=== PATIENT | female | born 1985 | race Caucasian/White ===

== ENCOUNTER → 2016-10-14 | Outpatient (CLI) | payer MEDICAID ==
--- NOTE | 2016-10-15 09:53 | CR ---
EXAM DATE: 10/14/16 PATIENT'S AGE: 31 Patient: KEY CASTLE Facility: [place], [place] Site Site : 1985 Study: XRay Abdomen [id number]/24/2017 11:24:22 AM Ordering Physician: NIRAV FRAGOSO DO Final Report: HISTORY: Kidney stones. Findings: A single supine radiograph of the abdomen is compared with 01 May 2016. There no calcific density seen overlying the renal shadows. There are clips seen along both sides of the pelvis. Stable bilateral pelvic phleboliths are present. There is some small by gas seen in the left mid abdomen in nondilated loops with stool throughout the colon. Bony structures are normal for age. Impression: No calcified urolithiasis identified. Dictated by Mary Grace Velasco MD @ Oct 14 2016 11:51PM (Electronic Signature) Report Signed by Proxy and Original Signed Document filed in the Medical Record. DONOVAND
== END ==
LOC: MW.DI 09:37
PROVIDERS: ATTEND Urology
DX: N20.0 Calculus of kidney (principal)
CPT/HCPCS: 74000; 74000-26

== ENCOUNTER → 2016-10-23 | Outpatient (CLI) | payer MEDICAID ==
--- NOTE | 2016-10-25 08:44 | NM ---
EXAMINATION: DTPA renogram HISTORY: Calculus of the kidney COMPARISON: Ultrasound dated 12/05/2015 TECHNIQUE: Flow and dynamic images obtained of the urinary system following the administration of 20 .4 mCi of technetium 99m labeled DTPA. The clearance was normal and Lasix was not used. FINDINGS: There is adequate and symmetric flow to the kidneys bilaterally. The T1 half of the right kidney is 22 minutes and the T1 half of the left kidney is 18 minutes. Both kidneys demonstrate a nonobstructive clearance curve. Both ureters are noted in nondilated on the d ynamic images. The split function is 51.6% on the right and 48.4% on the left. IMPRESSION: 1. Grossly unremarkable DTPA renogram.
== END ==
LOC: MW.NM 09:55
PROVIDERS: ATTEND Urology
DX: N20.0 Calculus of kidney (principal)
CPT/HCPCS: 78707; A9567

== ENCOUNTER 2016-12-06 18:30 | Emergency (ER) | payer MEDICAID ==
--- NOTE | 2016-12-06 18:47 | EDM.PDOC ---
ED HPI GENERAL MEDICAL PROBLEM - General Chief Complaint: Bite:Animal, Insect Stated Complaint: CAT BITE RT HAND Time Seen by Provider: 12/06/16 18:46 Source of Information: Reports: Patient History Limitations: Reports: No Limitations - History of Present Illness INITIAL COMMENTS - FREE TEXT/NARRATIVE: History of present illness: [31-year-old female presenting with complaints of pain in the right wrist area status post cat bite. The incident occurred last night by a cat given to her by her neighbor. She is indicating the cat is current on all immunizations including its rabies.] Review of systems: As per history of present illness and below otherwise all systems reviewed and negative. Past medical history: As per history of present illness and as reviewed below otherwise noncontributory. Surgical history: As per history of present illness and as reviewed below otherwise noncontributory. Social history: No reported history of drug or alcohol abuse. Family history: As per history of present illness and as reviewed below otherwise noncontributory. Physical exam: HEENT: Atraumatic, normocephalic, pupils reactive, negative for conjunctival pallor or scleral icterus, mucous membranes moist, throat clear, neck supple, nontender, trachea midline. Lungs: Clear to auscultation, breath sounds equal bilaterally, chest nontender. Heart: S1S2, regular, negative for clicks, rubs, or JVD. Abdomen: Soft, nondistended, nontender. Negative for masses or hepatosplenomegaly. Negative for costovertebral tenderness. Pelvis: Stable nontender. Genitourinary: Deferred. Rectal: Deferred. Extremities: Right hand with a puncture wound at the wrist with some erythema surrounding it going into the dorsal aspect of the hand. negative for cords or calf pain. Neurovascular unremarkable. Neuro: Awake, alert, oriented. Cranial nerves II through XII unremarkable. Cerebellum unremarkable. Motor and sensory unremarkable throughout. Exam nonfocal. Vision has diffuse swelling at the site of the puncture wound and has some stiffness and pain with passive range of motion as well as active range of motion. Diagnostics: [X-ray right wrist] Therapeutics: [Tpradol 60 mg IM] Impression: [Cat Bite] Plan: [Augmentin] Definitive disposition and diagnosis as appropriate pending reevaluation and review of above. 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: Neurological History: Reports: Other (See Below) Other Neuro History: epilepsy Endocrine/Metabolic History: Reports: Diabetes, Gestational - Past Surgical History Musculoskeletal Surgical History: Reports: Other (See Below) Social & Family History - Family History Endocrine/Metabolic: Reports: Diabetes, type II Oncologic: Reports: Prostate - Tobacco Use Smoking Status *Q: Never Smoker Years of Tobacco use: 15 Used Tobacco, but Quit: No Second Hand Smoke Exposure: No - Alcohol Use Days Per Week of Alcohol Use: 0 Number of Drinks Per Day: 1 Total Drinks Per Week: 0 - Recreational Drug Use Recreational Drug Use: No ED ROS GENERAL - Review of Systems Review Of Systems: See Below (See history of present illness) ED EXAM, ANIMAL BITE - Physical Exam Exam: See Below (See history of present illness) Course - Vital Signs Last Recorded V/S: Last Vital Signs Temp 36.7 C 12/06/16 18:43 Pulse 90 12/06/16 18:43 Resp 18 12/06/16 18:43 BP 154/90 H 12/06/16 18:43 Pulse Ox 96 12/06/16 18:43 - Orders/Labs/Meds Orders: Active Orders 24 hr Category Date Time Status Wrist 2V Rt [CR] Stat Exams 12/06/16 18:48 Taken Meds: Medications Discontinued Medications Generic Name Dose Route Start Last Admin Trade Name Freq PRN Reason Stop Dose Admin Ampicillin Sodium/Sulbactam 100 mls @ 200 mls/hr 12/06/16 18:51 12/06/16 20: 00 Sodium 3 gm/ Sodium Chloride IV 12/06/16 19:20 200 mls/hr ONETIME ONE Administration Sodium Chloride 1,000 mls @ 999 mls/hr 12/06/16 18:51 12/06/16 19:18 Normal Saline IV 12/06/16 19:51 999 mls/hr STAT ONE Administration Departure - Departure Time of Disposition: 20:14 Disposition: Home, Self-Care 01 Condition: Good Clinical Impression: Cellulitis - Discharge Information Prescriptions: Amoxicillin/Potassium Clav [Augmentin 875-125 Tablet] 1 each PO BID #20 tablet Instructions: Animal Bite, [id number] Forms: ED Department Discharge Additional Instructions: The following information is given to patients seen in the emergency department who are being discharged to home. This information is to outline your options for follow-up care. We provide all patients seen in our emergency department with a follow-up referral. The need for follow-up, as well as the timing and circumstances, are variable depending upon the specifics of your emergency department visit. If you don't have a primary care physician on staff, we will provide you with a referral. We always advise you to contact your personal physician following an emergency department visit to inform them of the circumstance of the visit and for follow-up with them and/or the need for any referrals to a consulting specialist. The emergency department will also refer you to a specialist when appropriate. This referral assures that you have the opportunity for follow-up care with a specialist. All of these measure are taken in an effort to provide you with optimal care, which includes your follow-up. Under all circumstances we always encourage you to contact your private physician who remains a resource for coordinating your care. When calling for follow-up care, please make the office aware that this follow-up is from your recent emergency room visit. If for any reason you are refused follow-up, please contact the [facility] Emergency Department at and asked to speak to the emergency department charge nurse. Take medication as directed Follow-up with PCP in 1-2 days Return to ED as needed as discussed - My Orders Last 24 Hours: My Active Orders 12/06/16 18:48 Wrist 2V Rt [CR] Stat - Assessment/Plan Last 24 Hours: My Active Orders 12/06/16 18:48 Wrist 2V Rt [CR] Stat
[2016-12-06] MEDS ORDERED: Ampicillin/Sulbactam Na 3 GM in Sodium Chloride 0.9% 100 ML IV ONE (18:51)
[2016-12-06] MEDS ORDERED: Sodium Chloride 0.9% 1,000 ML IV ONE (18:51)
[2016-12-06 21:44] VITALS: BP 148/80
--- NOTE | 2016-12-09 11:07 | CR ---
EXAM DATE: 12/06/16 PATIENT'S AGE: 31 Patient: KEY CASTLE Facility: [place], [place] Site . Site : 1985 Study: XRay Extremity wrist [id number]/16/2017 7:14:16 PM Ordering Physician: Doctor Jesus Final Report: INDICATION: cat bite INDICATION: Right wrist pain and injury with cat bite. Technique: Two-view. FINDINGS: No fracture is seen of the right wrist. No gas within the soft tissues is identified. IMPRESSION: No fracture is seen of the right wrist. No gas within the soft tissues is identified. Dictated by Neri Schwartz MD @ 12/06/2016 7:39:54 PM Dictated by: Neri Schwartz MD @ 12/06/2016 19:40:11 (Electronic Signature) Report Signed by Proxy. MTDAlaina
== END 2016-12-06 20:36 | disposition home or self-care (01) ==
LOC: MW.ED 18:30
DX: S61.531A Puncture wound without foreign body of right wrist, initial encounter (principal); L03.113 Cellulitis of right upper limb; G40.909 Epilepsy, unspecified, not intractable, without status epilepticus; W55.01XA Bitten by cat, initial encounter
CPT/HCPCS: 73100; 96361; 96365; 99283; J0295; J7030; J7040

== ENCOUNTER 2018-03-03 11:28 | Emergency (ER) | payer MEDICAID ==
--- NOTE | 2018-03-03 12:29 | EDM.PDOC ---
ED HPI GENERAL MEDICAL PROBLEM - General Chief Complaint: Genitourinary Problem Stated Complaint: BURNING AND ITCHING VAGINA Time Seen by Provider: 03/03/18 11:46 Source of Information: Reports: Patient History Limitations: Reports: No Limitations - History of Present Illness INITIAL COMMENTS - FREE TEXT/NARRATIVE: History of present illness: []Patient complains of vaginal burning and itching feeling that feels like sandpaper. Patient has had this before and was treated with Monistat topically with good results. She tried using Monistat again but did not work. She is not diabetic she does state she used douche recently. Patient had diabetes during her second and has a family history of diabetes. Review of systems: As per history of present illness and below otherwise all systems reviewed and negative. Past medical history: As per history of present illness and as reviewed below otherwise noncontributory. Surgical history: As per history of present illness and as reviewed below otherwise noncontributory. Social history: No reported history of drug or alcohol abuse. Family history: As per history of present illness and as reviewed below otherwise noncontributory. Physical exam: General: Well developed, well nourished in NAD HEENT: Atraumatic, normocephalic, pupils reactive, negative for conjunctival pallor or scleral icterus, mucous membranes moist, throat clear, neck supple, nontender, trachea midline. Lungs: Clear to auscultation, breath sounds equal bilaterally, chest nontender. Heart: S1S2, regular, negative for clicks, rubs, or JVD. Abdomen: Soft, nondistended, nontender. Negative for masses or hepatosplenomegaly. Negative for costovertebral tenderness. Pelvis: Stable nontender. Genitourinary: Deferred. Rectal: Deferred. Extremities: Atraumatic, negative for cords or calf pain. Neurovascular unremarkable. Neuro: Awake, alert, oriented. Cranial nerves II through XII unremarkable. Cerebellum unremarkable. Motor and sensory unremarkable throughout. Exam nonfocal. Skin:warm and dry Diagnostics: UA shows glucose over thousand, hCG negative, [id number] bedside glucose shows a glucose of 337 Therapeutics: Regular insulin 10 units given subcutaneous ED Course: Unremarkable Impression: Yeast infection, new onset diabetes Prescriptions: Diflucan Plan: Patient will be going to diabetic teaching after she leaves here. So has an appointment with Dr. Chandra tomorrow in the clinic. During her on metformin twice a day. Use Diflucan as directed follow-up with [facility]. Definitive disposition and diagnosis as appropriate pending reevaluation and review of above. Vaginal Pain Score (Numeric/FACES): 3 - Related Data Allergies Allergy/AdvReac Type Severity Reaction Status Date / Time No Known Allergies Allergy Verified 12/06/16 18:45 Home Meds: Home Meds Topiramate [Topamax] 200 mg PO BID 08/11/14 [History] Amoxicillin/Potassium Clav [Augmentin 875-125 Tablet] 1 each PO BID #20 tablet 12/06/16 [Rx] Fluconazole [Diflucan] 150 mg PO ASDIRECTED #2 tablet 03/03/18 [Rx] metFORMIN [Glucophage XR] 500 mg PO BIDMEALS #16 tab.er 03/03/18 [Rx] Past Medical History - Past Health History Medical/Surgical History: Denies Medical/Surgical History Genitourinary History: Reports: Pyelonephritis 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 ED EXAM, RENAL/ - Physical Exam Exam: See Below (See history of present illness) Course - Vital Signs Last Recorded V/S: Last Vital Signs Temp 97.2 F 03/03/18 12:59 Pulse 95 03/03/18 12:59 Resp 20 03/03/18 12:59 BP 127/97 H 03/03/18 12:59 Pulse Ox 95 03/03/18 12:59 - Orders/Labs/Meds Orders: Active Orders 24 hr Category Date Time Status POC Glucose [Blood Glucose Check, Bedside] [RC] ONETIME Care 03/03/18 12:49 Active Labs: Laboratory Tests 03/03/18 03/03/18 03/03/18 Range/Units 12:30 12:30 12:51 POC Glucose 339 H (60-110) mg/dL Urine Color YELLOW Urine Appearance CLEAR Urine pH 6.0 (5.0-8.0) Ur Specific Taylor 1.015 (1.001-1.035) Urine Protein NEGATIVE (NEGATIVE) mg/dL Urine Glucose (UA) >=1000 (NEGATIVE) mg/dL Urine Ketones TRACE H (NEGATIVE) mg/dL Urine Occult Blood TRACE-LYSED (NEGATIVE) Urine Nitrite NEGATIVE (NEGATIVE) Urine Bilirubin NEGATIVE (NEGATIVE) Urine Urobilinogen 0.2 (<2.0) EU/dL Ur Leukocyte Esterase NEGATIVE (NEGATIVE) Urine RBC 2-4 (0-2/HPF) Urine WBC 0-3 (0-5/HPF) Ur Epithelial Cells FEW (NONE-FEW) Urine Bacteria FEW (NEGATIVE) Urine HCG, Qual NEGATIVE (NEGATIVE) 03/03/18 Range/Units 13:28 POC Glucose 352 H (60-110) mg/dL Urine Color Urine Appearance Urine pH (5.0-8.0) Ur Specific Taylor (1.001-1.035) Urine Protein (NEGATIVE) mg/dL Urine Glucose (UA) (NEGATIVE) mg/dL Urine Ketones (NEGATIVE) mg/dL Urine Occult Blood (NEGATIVE) Urine Nitrite (NEGATIVE) Urine Bilirubin (NEGATIVE) Urine Urobilinogen (<2.0) EU/dL Ur Leukocyte Esterase (NEGATIVE) Urine RBC (0-2/HPF) Urine WBC (0-5/HPF) Ur Epithelial Cells (NONE-FEW) Urine Bacteria (NEGATIVE) Urine HCG, Qual (NEGATIVE) Meds: Medications Discontinued Medications Generic Name Dose Route Start Last Admin Trade Name Freq PRN Reason Stop Dose Admin Insulin Human Regular 10 unit 03/03/18 12:52 03/03/18 13:03 Novolin R SUBCUT 03/03/18 12:53 10 units ONETIME ONE Administration Protocol Insulin Human Regular Confirm 03/03/18 13:01 03/03/18 13:05 Novolin R Administered 03/03/18 13:02 Not Given Dose 1,000 unit .ROUTE .STK-MED ONE Insulin Human Regular 10 unit 03/03/18 13:30 03/03/18 13:32 Novolin R SUBCUT 03/03/18 13:31 10 units ONETIME ONE Administration Protocol Departure - Departure Time of Disposition: 13:34 Disposition: Home, Self-Care 01 Condition: Good Clinical Impression: Vaginal yeast infection, Diabetes mellitus, new onset - Discharge Information *PRESCRIPTION DRUG MONITORING PROGRAM REVIEWED*: No *COPY OF PRESCRIPTION DRUG MONITORING REPORT IN PATIENT ALEXANDR: No Prescriptions: Fluconazole [Diflucan] 150 mg PO ASDIRECTED #2 tablet metFORMIN [Glucophage XR] 500 mg PO BIDMEALS #16 tab.er Instructions: Type 2 Diabetes Mellitus, Diagnosis, Adult, Vaginal Yeast Infection, Adult Referrals: Kartik Stallworth MD [Primary Care Provider] - Forms: ED Department Discharge Additional Instructions: The following information is given to patients seen in the emergency department who are being discharged to home. This information is to outline your options for follow-up care. We provide all patients seen in our emergency department with a follow-up referral. The need for follow-up, as well as the timing and circumstances, are variable depending upon the specifics of your emergency department visit. If you don't have a primary care physician on staff, we will provide you with a referral. We always advise you to contact your personal physician following an emergency department visit to inform them of the circumstance of the visit and for follow-up with them and/or the need for any referrals to a consulting specialist. The emergency department will also refer you to a specialist when appropriate. This referral assures that you have the opportunity for follow-up care with a specialist. All of these measure are taken in an effort to provide you with optimal care, which includes your follow-up. Under all circumstances we always encourage you to contact your private physician who remains a resource for coordinating your care. When calling for follow-up care, please make the office aware that this follow-up is from your recent emergency room visit. If for any reason you are refused follow-up, please contact the [facility] Emergency Department at and asked to speak to the emergency department charge nurse. Use medications as directed. Please keep follow up appointment with [facility] Stitcher at 2pm today and with Dr. Chandra tomorrow at 0930am. [facility] [address] [place] [id number] - My Orders Last 24 Hours: My Active Orders 03/03/18 12:49 POC Glucose [Blood Glucose Check, Bedside] [RC] ONETIME - Assessment/Plan Last 24 Hours: My Active Orders 03/03/18 12:49 POC Glucose [Blood Glucose Check, Bedside] [RC] ONETIME
[2018-03-03] MEDS ORDERED: Insulin Regular, Human 100 Units/ML 10 ML Vial SUBCUT ONE ×2 (12:52→13:30)
[2018-03-03] MEDS ORDERED: Insulin Regular, Human 100 Units/ML 10 ML Vial ONE (13:01)
[2018-03-03 14:13] VITALS: BP 160/101
== END 2018-03-03 13:34 | disposition home or self-care (01) ==
LOC: MW.ED 11:28
DX: B37.3 Candidiasis of vulva and vagina (principal); E11.9 Type 2 diabetes mellitus without complications; Z79.899 Other long term (current) drug therapy
CPT/HCPCS: 81001; 81025; 82962; 99283; J1815-GY

== ENCOUNTER 2018-08-11 10:48 | Emergency (ER) | payer SELFPAY ==
[2018-08-11] MEDS ORDERED: Sodium Chloride 0.9% 1,000 ML IV ONE (10:52)
[2018-08-11] MEDS ORDERED: Sodium Chloride 0.9% 2.5 ML Syringe FLUSH PRN (10:52)
[2018-08-11] MEDS ORDERED: Sodium Chloride 0.9% 10 ML Syringe FLUSH PRN (10:52)
--- NOTE | 2018-08-11 10:56 | EDM.PDOC ---
ED HPI GENERAL MEDICAL PROBLEM - General Chief Complaint: Neurological Problem Stated Complaint: SEIZURES Time Seen by Provider: 08/11/18 10:50 - History of Present Illness INITIAL COMMENTS - FREE TEXT/NARRATIVE: HISTORY AND PHYSICAL: History of present illness: Patient is a 32-year-old white female history diabetes and seizure disorder who presents status post CVA last approximately 1 minute with postictal. There is no associated trauma patient states she has been compliant with her medications on arrival here is awake alert oriented with a nonfocal exam blood sugar sugar was reportedly 456 in the field patient states she's not particularly compulsive regarding management of her diabetes. Review of systems: As per history of present illness and below otherwise all systems reviewed and negative. Past medical history: As per history of present illness and as reviewed below otherwise noncontributory. Surgical history: As per history of present illness and as reviewed below otherwise noncontributory. Social history: No reported history of drug or alcohol abuse. Family history: As per history of present illness and as reviewed below otherwise noncontributory. Physical exam: HEENT: Atraumatic, normocephalic, pupils reactive, negative for conjunctival pallor or scleral icterus, mucous membranes moist, throat clear, neck supple, nontender, trachea midline. Lungs: Clear to auscultation, breath sounds equal bilaterally, chest nontender. Heart: S1S2, regular, negative for clicks, rubs, or JVD. Abdomen: Soft, nondistended, nontender. Negative for masses or hepatosplenomegaly. Negative for costovertebral tenderness. Pelvis: Stable nontender. Genitourinary: Deferred. Rectal: Deferred. Extremities: Atraumatic, negative for cords or calf pain. Neurovascular unremarkable. Neuro: Awake, alert, oriented. Cranial nerves II through XII unremarkable. Cerebellum unremarkable. Motor and sensory unremarkable throughout. Exam nonfocal. Diagnostics: CBC CMP ABG UA hCG prolactin level chest x-ray Therapeutics: Saline 1 L bolus Impression: #1 seizure with known seizure disorder #2 diabetes #3 medical noncompliance Definitive disposition and diagnosis as appropriate pending reevaluation and review of above. - Related Data Allergies Allergy/AdvReac Type Severity Reaction Status Date / Time No Known Allergies Allergy Verified 08/11/18 10:54 Home Meds: Home Meds Topiramate [Topamax] 200 mg PO BID 08/11/14 [History] Amoxicillin/Potassium Clav [Augmentin 875-125 Tablet] 1 each PO BID #20 tablet 12/06/16 [Rx] Fluconazole [Diflucan] 150 mg PO ASDIRECTED #2 tablet 03/03/18 [Rx] metFORMIN [Glucophage XR] 500 mg PO BIDMEALS #16 tab.er 03/03/18 [Rx] Past Medical History - Past Health History Medical/Surgical History: Denies Medical/Surgical History HEENT History: Reports: None Genitourinary History: Reports: Pyelonephritis 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: Neurological History: Reports: Other (See Below) Other Neuro History: epilepsy Endocrine/Metabolic History: Reports: Diabetes, Gestational - Infectious Disease History Infectious Disease History: Reports: Chicken Pox - Past Surgical History Musculoskeletal Surgical History: Reports: Other (See Below) Social & Family History - Family History Family Medical History: Noncontributory Cardiac: Reports: Other (See Below) Other Cardiac Family History: heart disease, does not know specifics Neurological: Reports: Other (See Below) Other Neurological Family History: epilepsy Endocrine/Metabolic: Reports: Diabetes, type II Oncologic: Reports: Prostate - Caffeine Use Caffeine Use: Reports: Soda ED ROS GENERAL - Review of Systems Review Of Systems: ROS reveals no pertinent complaints other than HPI. ED EXAM, GENERAL - Physical Exam Exam: See Below (See dictation) Course - Vital Signs Text/Narrative:: Patient has had an unremarkable emergency department course I discuss with her her poorly managed diabetes and her current lab work I discussed with her admission for observation and further treatment as needed patient declined she states she feels better and is eager for discharge she will follow-up with her primary medical doctor. Last Recorded V/S: Last Vital Signs Temp 36.8 C 08/11/18 10:50 Pulse 111 H 08/11/18 11:18 Resp 16 08/11/18 11:18 BP 130/93 H 08/11/18 11:18 Pulse Ox 97 08/11/18 11:18 - Orders/Labs/Meds Orders: Active Orders 24 hr Category Date Time Status Cardiac Monitoring [RC] . DIRECTED Care 08/11/18 10:51 Active EKG Documentation Completion [RC] STAT Care 08/11/18 10:51 Active Oxygen Therapy, ED [RC] ASDIRECTED Care 08/11/18 10:51 Active Pulse Oximetry [RC] ASDIRECTED Care 08/11/18 10:51 Active UA RFX ALIYA AND CULT IF INDIC [URIN] Stat Lab 08/11/18 10:53 Ordered Sodium Chloride 0.9% [Saline Flush] Med 08/11/18 10:52 Active 10 ml FLUSH ASDIRECTED PRN Sodium Chloride 0.9% [Saline Flush] Med 08/11/18 10:52 Active 2.5 ml FLUSH ASDIRECTED PRN Saline Lock Insert [OM.PC] Stat Oth 08/11/18 10:51 Ordered Medication Orders Sodium Chloride (Saline Flush) 10 ml FLUSH ASDIRECTED PRN PRN Reason: Keep Vein Open Sodium Chloride (Saline Flush) 2.5 ml FLUSH ASDIRECTED PRN PRN Reason: Keep Vein Open Labs: Laboratory Tests 08/11/18 08/11/18 08/11/18 Range/Units 11:15 11:15 11:15 WBC 4.45 (4.0-11.0) K/uL RBC 4.31 (4.30-5.90) M/uL Hgb 14.2 (12.0-16.0) g/dL Hct 39.7 (36.0-46.0) % MCV 92.1 (80.0-98.0) fL MCH 32.9 H (27.0-32.0) pg MCHC 35.8 (31.0-37.0) g/dL RDW Std Deviation 40.1 (28.0-62.0) fl RDW Coeff of Ifeoma 12 (11.0-15.0) % Plt Count 141 L (150-400) K/uL MPV 10.20 (7.40-12.00) fL Neut % (Auto) 67.5 (48.0-80.0) % Lymph % (Auto) 25.8 (16.0-40.0) % [place] % (Auto) 4.9 (0.0-15.0) % Eos % (Auto) 1.6 (0.0-7.0) % Baso % (Auto) 0.2 (0.0-1.5) % Neut # (Auto) 3.0 (1.4-5.7) K/uL Lymph # (Auto) 1.2 (0.6-2.4) K/uL [place] # (Auto) 0.2 (0.0-0.8) K/uL Eos # (Auto) 0.1 (0.0-0.7) K/uL Baso # (Auto) 0.0 (0.0-0.1) K/uL Nucleated RBC % 0.0 /100WBC Nucleated RBCs # 0 K/uL INR 1.06 ABG pH (7.35-7.45) ABG pCO2 (35-45) mmHG ABG pO2 (75-100) mmHG ABG HCO3 (22-26) mEq/L ABG Total CO2 ABG Base Excess (-2.0-2.0) Sodium 129 L (136-145) mmol/L Potassium 3.7 (3.5-5.1) mmol/L Chloride 93 L (98-107) mmol/L Carbon Dioxide 17.3 L (21.0-32.0) mmol/L BUN 9 (7.0-18.0) mg/dL Creatinine 1.3 H (0.6-1.0) mg/dL Est Cr Clr Drug Dosing 53.52 mL/min Estimated GFR (MDRD) 46.9 ml/min Glucose 469 H (74-106) mg/dL Calcium 8.7 (8.5-10.1) mg/dL Total Bilirubin 0.6 (0.2-1.0) mg/dL AST 412 H (15-37) IU/L ALT 245 H (14-63) IU/L Alkaline Phosphatase 150 H (46-116) U/L Troponin I < 0.050 (0.000-0.056) ng/mL Total Protein 7.8 (6.4-8.2) g/dL Albumin 3.8 (3.4-5.0) g/dL Globulin 4.0 (2.6-4.0) g/dL Albumin/Globulin Ratio 0.9 (0.9-1.6) Prolactin 49.8 ng/mL HCG, Qual (NEG) 08/11/18 08/11/18 Range/Units 11:15 12:25 WBC (4.0-11.0) K/uL RBC (4.30-5.90) M/uL Hgb (12.0-16.0) g/dL Hct (36.0-46.0) % MCV (80.0-98.0) fL MCH (27.0-32.0) pg MCHC (31.0-37.0) g/dL RDW Std Deviation (28.0-62.0) fl RDW Coeff of Ifeoma (11.0-15.0) % Plt Count (150-400) K/uL MPV (7.40-12.00) fL Neut % (Auto) (48.0-80.0) % Lymph % (Auto) (16.0-40.0) % [place] % (Auto) (0.0-15.0) % Eos % (Auto) (0.0-7.0) % Baso % (Auto) (0.0-1.5) % Neut # (Auto) (1.4-5.7) K/uL Lymph # (Auto) (0.6-2.4) K/uL [place] # (Auto) (0.0-0.8) K/uL Eos # (Auto) (0.0-0.7) K/uL Baso # (Auto) (0.0-0.1) K/uL Nucleated RBC % /100WBC Nucleated RBCs # K/uL INR ABG pH 7.407 (7.35-7.45) ABG pCO2 34 L (35-45) mmHG ABG pO2 88 (75-100) mmHG ABG HCO3 21 L (22-26) mEq/L ABG Total CO2 19.0 ABG Base Excess -2.7 L (-2.0-2.0) Sodium (136-145) mmol/L Potassium (3.5-5.1) mmol/L Chloride (98-107) mmol/L Carbon Dioxide (21.0-32.0) mmol/L BUN (7.0-18.0) mg/dL Creatinine (0.6-1.0) mg/dL Est Cr Clr Drug Dosing mL/min Estimated GFR (MDRD) ml/min Glucose (74-106) mg/dL Calcium (8.5-10.1) mg/dL Total Bilirubin (0.2-1.0) mg/dL AST (15-37) IU/L ALT (14-63) IU/L Alkaline Phosphatase (46-116) U/L Troponin I (0.000-0.056) ng/mL Total Protein (6.4-8.2) g/dL Albumin (3.4-5.0) g/dL Globulin (2.6-4.0) g/dL Albumin/Globulin Ratio (0.9-1.6) Prolactin ng/mL HCG, Qual NEGATIVE (NEG) Meds: Medications Generic Name Dose Route Start Last Admin Trade Name Freq PRN Reason Stop Dose Admin Sodium Chloride 10 ml 08/11/18 10:52 Saline Flush FLUSH ASDIRECTED PRN Keep Vein Open Sodium Chloride 2.5 ml 08/11/18 10:52 Saline Flush FLUSH ASDIRECTED PRN Keep Vein Open Discontinued Medications Generic Name Dose Route Start Last Admin Trade Name Freq PRN Reason Stop Dose Admin Sodium Chloride 1,000 mls @ 999 mls/hr 08/11/18 10:52 08/11/18 11:16 Normal Saline IV 08/11/18 11:52 999 mls/hr STAT ONE Administration Departure - Departure Time of Disposition: 12:48 Disposition: Home, Self-Care 01 Condition: Good Clinical Impression: Seizure disorder, Diabetes, Medical non-compliance - Discharge Information Referrals: PCP,Unknown [Primary Care Provider] - Forms: ED Department Discharge Additional Instructions: The following information is given to patients seen in the emergency department who are being discharged to home. This information is to outline your options for follow-up care. We provide all patients seen in our emergency department with a follow-up referral. The need for follow-up, as well as the timing and circumstances, are variable depending upon the specifics of your emergency department visit. If you don't have a primary care physician on staff, we will provide you with a referral. We always advise you to contact your personal physician following an emergency department visit to inform them of the circumstance of the visit and for follow-up with them and/or the need for any referrals to a consulting specialist. The emergency department will also refer you to a specialist when appropriate. This referral assures that you have the opportunity for followup care with a specialist. All of these measure are taken in an effort to provide you with optimal care, which includes your followup. Under all circumstances we always encourage you to contact your private physician who remains a resource for coordinating your care. When calling for followup care, please make the office aware that this follow-up is from your recent emergency room visit. If for any reason you are refused follow-up, please contact the [facility] emergency department at and asked to speak to the emergency department charge nurse. Follow-up primary medical doctor CIRILO as discussed monitor blood sugar closely diet as discussed medications as directed and return as needed as discussed - My Orders Last 24 Hours: My Active Orders 08/11/18 10:51 Cardiac Monitoring [RC] . DIRECTED EKG Documentation Completion [RC] STAT Oxygen Therapy, ED [RC] ASDIRECTED Pulse Oximetry [RC] ASDIRECTED Saline Lock Insert [OM.PC] Stat 08/11/18 10:52 Sodium Chloride 0.9% [Saline Flush] 10 ml FLUSH ASDIRECTED PRN Sodium Chloride 0.9% [Saline Flush] 2.5 ml FLUSH ASDIRECTED PRN 08/11/18 10:53 UA RFX ALIYA AND CULT IF INDIC [URIN] Stat - Assessment/Plan Last 24 Hours: My Active Orders 08/11/18 10:51 Cardiac Monitoring [RC] . DIRECTED EKG Documentation Completion [RC] STAT Oxygen Therapy, ED [RC] ASDIRECTED Pulse Oximetry [RC] ASDIRECTED Saline Lock Insert [OM.PC] Stat 08/11/18 10:52 Sodium Chloride 0.9% [Saline Flush] 10 ml FLUSH ASDIRECTED PRN Sodium Chloride 0.9% [Saline Flush] 2.5 ml FLUSH ASDIRECTED PRN 08/11/18 10:53 UA RFX ALIYA AND CULT IF INDIC [URIN] Stat
--- NOTE | 2018-08-11 11:40 | CR ---
EXAMINATION: Portable chest radiograph. HISTORY: Shortness of breath. FINDINGS: The trachea is midline. The cardiomediastinal silhouette is within normal limits. No pulmonary infiltrates, effusions or pneumothorax. Osseous structures appear unremarkable. IMPRESSION: No acute cardiopulmonary process.
[2018-08-11 11:52] LABS: CHLORIDE,CL 93 mmol/L (98-107); SODIUM,NA 129 mmol/L (136-145)
[2018-08-11 13:07] VITALS: BP 111/66
== END 2018-08-11 13:14 | disposition home or self-care (01) ==
LOC: MW.ED 10:48
DX: G40.909 Epilepsy, unspecified, not intractable, without status epilepticus (principal); E11.9 Type 2 diabetes mellitus without complications; Z91.19 Patient's noncompliance with other medical treatment and regimen
CPT/HCPCS: 36415; 36600; 71045; 80053; 82803; 84146; 84484; 84703; 85025; 85610; 93005; 96360; 99285; J7040; 99284

== ENCOUNTER 2020-10-30 07:06 | Emergency (ER) | payer MEDICAID ==
--- NOTE | 2020-10-30 07:23 | EDM.PDOC ---
ED HPI GENERAL MEDICAL PROBLEM - General Chief Complaint: Neuro Symptoms/Deficits Stated Complaint: fall Time Seen by Provider: 10/30/20 07:10 Source of Information: Reports: Patient History Limitations: Reports: No Limitations - History of Present Illness INITIAL COMMENTS - FREE TEXT/NARRATIVE: Patient is a 35-year-old female who presents today for a syncope versus seizure. Patient states that she was at work setting up and the next thing she remembers she was on the ground waking up. Staff state the patient passed out. Patient was confused when EMS got there did not know where she was or what happened. Patient arrived patient was ANO x2 knew her name where she was at and president but did not know the year. Patient only complains of some pain to the back of her head denies any neck pain or neurologic complaints. Patient does mention has history of seizures not sure medication she takes. Patient denies any fever chills nausea vomiting or other complaints. Head Pain Score (Numeric/FACES): 4 - Related Data Allergies Allergy/AdvReac Type Severity Reaction Status Date / Time No Known Allergies Allergy Verified 08/11/18 10:54 Home Meds: Home Meds Topiramate [Topamax] 200 mg PO BID 08/11/14 [History] Amoxicillin/Potassium Clav [Augmentin 875-125 Tablet] 1 each PO BID #20 tablet 12/06/16 [Rx] Fluconazole [Diflucan] 150 mg PO ASDIRECTED #2 tablet 03/03/18 [Rx] metFORMIN [Glucophage XR] 500 mg PO BIDMEALS #16 tab.er 03/03/18 [Rx] Past Medical History - Past Health History Medical/Surgical History: Denies Medical/Surgical History HEENT History: Reports: None Genitourinary History: Reports: Pyelonephritis 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: Neurological History: Reports: Other (See Below) Other Neuro History: epilepsy Endocrine/Metabolic History: Reports: Diabetes, Gestational - Infectious Disease History Infectious Disease History: Reports: Chicken Pox - Past Surgical History Musculoskeletal Surgical History: Reports: Other (See Below) Social & Family History - Family History Family Medical History: No Pertinent Family History Cardiac: Reports: Other (See Below) Other Cardiac Family History: heart disease, does not know specifics Neurological: Reports: Other (See Below) Other Neurological Family History: epilepsy Endocrine/Metabolic: Reports: Diabetes, type II Oncologic: Reports: Prostate - Caffeine Use Caffeine Use: Reports: Soda ED ROS GENERAL - Review of Systems Review Of Systems: See Below Constitutional: Reports: No Symptoms HEENT: Reports: No Symptoms Respiratory: Reports: No Symptoms Cardiovascular: Reports: No Symptoms Endocrine: Reports: No Symptoms GI/Abdominal: Reports: No Symptoms : Reports: No Symptoms Musculoskeletal: Reports: No Symptoms Skin: Reports: No Symptoms Neurological: Reports: Syncope Psychiatric: Reports: No Symptoms Hematologic/Lymphatic: Reports: No Symptoms Immunologic: Reports: No Symptoms - Physical Exam Exam: See Below Exam Limited By: No Limitations General Appearance: Alert, WD/WN, No Apparent Distress Eye Exam: Bilateral Eye: EOMI, PERRL Head Exam: Atraumatic, Normocephalic Neck: Normal Inspection, Supple, Non-Tender Respiratory/Chest: No Respiratory Distress, Lungs Clear, Normal Breath Sounds Cardiovascular: Normal Peripheral Pulses, Regular Rate, Rhythm GI/Abdominal: Normal Bowel Sounds, Soft, Non-Tender Neuro Exam (Abbreviated): Alert, Oriented, CN II-XII Intact, Normal Cognition, Normal Gait #1 Interpretation EKG Date: 10/30/20 Time: 07:09 Rhythm: Other (sinus tach) Rate (Beats/Min): 111 ST-T: Normal Course - Vital Signs Last Recorded V/S: Last Vital Signs Temp 98.6 F 10/30/20 07:14 Pulse 87 10/30/20 08:57 Resp 16 10/30/20 08:57 BP 127/87 10/30/20 08:57 Pulse Ox 99 10/30/20 08:57 - Orders/Labs/Meds Orders: Active Orders 24 hr Category Date Time Status DRUG SCREEN, URINE [URCHEM] Stat Lab 10/30/20 07:18 Ordered Labs: Laboratory Tests 10/30/20 10/30/20 10/30/20 Range/Units 07:08 07:08 07:08 WBC 4.30 (4.0-11.0) K/uL RBC 4.25 L (4.30-5.90) M/uL Hgb 13.7 (12.0-16.0) g/dL Hct 41.2 (36.0-46.0) % MCV 96.9 (80.0-98.0) fL MCH 32.2 H (27.0-32.0) pg MCHC 33.3 (31.0-37.0) g/dL RDW Std Deviation 43.6 (28.0-62.0) fl RDW Coeff of Ifeoma 12 (11.0-15.0) % Plt Count 157 (150-400) K/uL MPV 10.10 (7.40-12.00) fL Neut % (Auto) 54.5 (48.0-80.0) % Lymph % (Auto) 37.4 (16.0-40.0) % [place] % (Auto) 5.8 (0.0-15.0) % Eos % (Auto) 2.3 (0.0-7.0) % Baso % (Auto) 0.0 (0.0-1.5) % Neut # (Auto) 2.3 (1.4-5.7) K/uL Lymph # (Auto) 1.6 (0.6-2.4) K/uL [place] # (Auto) 0.3 (0.0-0.8) K/uL Eos # (Auto) 0.1 (0.0-0.7) K/uL Baso # (Auto) 0.0 (0.0-0.1) K/uL Nucleated RBC % 0.0 /100WBC Nucleated RBCs # 0 K/uL Sodium 139 (136-145) mmol/L Potassium 4.0 (3.5-5.1) mmol/L Chloride 99 (98-107) mmol/L Carbon Dioxide 24.5 (21.0-32.0) mmol/L BUN 13 (7.0-18.0) mg/dL Creatinine 1.1 H (0.6-1.0) mg/dL Est Cr Clr Drug Dosing 50.30 mL/min Estimated GFR (MDRD) 55.9 ml/min Glucose 272 H (74-106) mg/dL Calcium 9.1 (8.5-10.1) mg/dL Total Bilirubin 0.2 (0.2-1.0) mg/dL AST 79 H (15-37) IU/L ALT 86 H (14-63) IU/L Alkaline Phosphatase 138 H (46-116) U/L Creatine Kinase 91 (26-308) U/L Troponin I < 0.050 (0.000-0.056) ng/mL Total Protein 7.9 (6.4-8.2) g/dL Albumin 3.7 (3.4-5.0) g/dL Globulin 4.2 H (2.6-4.0) g/dL Albumin/Globulin Ratio 0.9 (0.9-1.6) HCG, Qual NEGATIVE (NEG) Ethyl Alcohol 3 mg/dL Meds: Medications Discontinued Medications Generic Name Dose Route Start Last Admin Trade Name Paula PRN Reason Stop Dose Admin Acetaminophen 650 mg 10/30/20 08:21 10/30/20 08:30 Acetaminophen 325 Mg Tab PO 10/30/20 08:22 650 mg NOW ONE Administration - Re-Assessments/Exams Free Text/Narrative Re-Assessment/Exam: 10/30/20 09:28 Patient presented today for possible seizure. Patient seems to be back at baseline CT head showed a soft tissue hematoma. Patient will be discharged when she can follow-up with her neurologist outpatient. Departure - Departure Time of Disposition: 09:33 Disposition: Home, Self-Care 01 Condition: Good Clinical Impression: Seizure - Discharge Information *PRESCRIPTION DRUG MONITORING PROGRAM REVIEWED*: Not Applicable *COPY OF PRESCRIPTION DRUG MONITORING REPORT IN PATIENT ALEXANDR: Not Applicable Instructions: Seizure, Adult Forms: ED Department Discharge Additional Instructions: The following information is given to patients seen in the emergency department who are being discharged to home. This information is to outline your options for follow-up care. We provide all patients seen in our emergency department with a follow-up referral. The need for follow-up, as well as the timing and circumstances, are variable depending upon the specifics of your emergency department visit. If you don't have a primary care physician on staff, we will provide you with a referral. We always advise you to contact your personal physician following an emergency department visit to inform them of the circumstance of the visit and for follow-up with them and/or the need for any referrals to a consulting specialist. The emergency department will also refer you to a specialist when appropriate. This referral assures that you have the opportunity for follow-up care with a specialist. All of these measure are taken in an effort to provide you with optimal care, which includes your follow-up. Under all circumstances we always encourage you to contact your private phys ician who remains a resource for coordinating your care. When calling for follow-up care, please make the office aware that this follow-up is from your recent emergency room visit. If for any reason you are refused follow-up, please contact the [facility] Emergency Department at and asked to speak to the emergency department charge nurse. Please follow up with your primary care physician. If you do not have a primary care physician, see below: [facility] - Neurology Professional [address], [address] [place] [address] You were seen today after a syncopal episode was probably was a seizure. You are back to baseline now and recommend you continue your seizure medication follow-up with your neurologist for further adjustment of his seizure regimen. You have any other concerning signs or symptoms please return to the ED. Sepsis Event Note (ED) - Evaluation Sepsis Screening Result: No Definite Risk - Focused Exam Vital Signs: Vital Signs Temp Pulse Resp BP Pulse Ox 10/30/20 08:57 87 16 127/87 99 10/30/20 07:14 98.6 F 108 H 16 141/82 H 98 - My Orders Last 24 Hours: My Active Orders 10/30/20 07:18 DRUG SCREEN, URINE [URCHEM] Stat - Assessment/Plan Last 24 Hours: My Active Orders 10/30/20 07:18 DRUG SCREEN, URINE [URCHEM] Stat Plan: Patient is a 35-year-old female who presents today for a syncope versus seizure episode. Patient is ANO x2 has some slight confusion. Patient does have a history of seizures in the past. Will obtain labs CT head and reassess.
[2020-10-30 07:42] LABS: BLOOD UREA NITROGEN,BUN 13 mg/dL (7.0-18.0); CARBON DIOXIDE,CO2 24.5 mmol/L (21.0-32.0); CHLORIDE,CL 99 mmol/L (98-107); GLUCOSE RANDOM 272 mg/dL (74-106); SODIUM,NA 139 mmol/L (136-145)
[2020-10-30] MEDS ORDERED: Acetaminophen 325 MG Tab PO ONE (08:21)
--- NOTE | 2020-10-30 08:42 | CR ---
Indication: Seizure Comparison: Single-view chest August 11, 2018 Technique: Single AP view chest Findings : There is mild central bronchial thickening. There is no focal consolidation, effusion, or pneumothorax. The cardiomediastinal silhouette is within normal limits. The bony thorax is grossly intact. Impression: Mild central bronchial thickening without dense consolidation. Dictated by Josh Manzano MD @ 10/30/2020 8:40:[address] Josh Manzano @ Oct 30 2020 8:40AM
--- NOTE | 2020-10-30 09:16 | CT ---
Indication: Seizure versus syncope Technique: Volumetric multidetector CT images of the head were obtained without the administration of low osmolar intravenous contrast. Comparison: CT head December 07, 2015 Findings: There is no intra-axial or extra-axial fluid collection. There is no mass effect or midline shift. The ventricles and sulci are normal in size and position for age. The brain parenchyma is grossly preserved in attenuation and ramsay-white differentiation. The orbits and their contents are grossly within normal limits. There is a small left posterior vertex subgaleal soft tissue hematoma. Otherwise, the underlying bony calvarium is grossly intact. The paranasal sinuses are clear. The mastoid air cells are well aerated. Impression: Left vertex subgaleal soft tissue hematoma, otherwise no acute intracranial abnormality. Please note that all CT scans at this facility use dose modulation, iterative reconstruction, and/or weight-based dosing when appropriate to reduce radiation dose to as low as reasonably achievable. Dictated by Josh Manzano MD @ 10/30/2020 9:14:[address] Josh Manzano @ Oct 30 2020 9:14AM
[2020-10-30 10:36] VITALS: BP 113/78; PULSE 78
== END 2020-10-30 10:37 | disposition home or self-care (01) ==
LOC: MW.ED 07:06
DX: R56.9 Unspecified convulsions (principal)
CPT/HCPCS: 36415; 70450; 71045; 80053; 80305; 80307; 81003; 82550; 84484; 84703; 85025; 93005; 99285; A9270

== ENCOUNTER 2021-02-19 17:46 | Emergency (ER) | payer MEDICAID ==
--- NOTE | 2021-02-19 18:33 | EDM.PDOC ---
ED HPI GENERAL MEDICAL PROBLEM - General Chief Complaint: Neurological Problem Stated Complaint: EMS Time Seen by Provider: 02/19/21 18:14 - History of Present Illness INITIAL COMMENTS - FREE TEXT/NARRATIVE: CHIEF COMPLAINT(S): Weakness HISTORY OF PRESENT ILLNESS: This is a 35-year-old woman with a past medical history of diabetes mellitus who comes to be emergency department via EMS with a chief complaint of weakness. Per EMS: The patient called them because she was feeling weak. On their arrival she was diaphoretic and they checked her glucose which was found to be in the 70s. They provide the patient with 1 D10 drip and her symptoms have improved. Other than that no other medical history. The patient states that she was at work today and she suddenly became diaphoretic and cold. She states that she went home and was feeling weak and did not drink any thing or eat anything and lay down. She states that after the dextrose given in route she feels back to normal just a little bit cold. She denies any fever, chills, chest pain, short of breath, abdominal pain, nausea or vomiting. She denies any excessive use of insulin. She did not give herself any excessive doses. She states that she just did not feel hungry at home. REVIEW OF SYSTEMS: Constitutional: Positive for weakness and diaphoresis denies fever, chills. Eyes: Denies eye pain Ears, Nose, Mouth, & Throat: Denies earache Cardiovascular: Denies chest pain Respiratory: Denies shortness of breath Gastrointestinal: Denies Nausea, vomiting, diarrhea, hematochezia. Genitourinary: Denies hematuria Skin:Denies a rash MSK: Denies joint pain Neurological: Denies blurred vision Psychiatric: Denies depression PAST MEDICAL HISTORY: As per history of present illness and as reviewed below otherwise noncontributory. SURGICAL HISTORY: As per history of present illness and as reviewed below otherwise noncontributory. SOCIAL HISTORY: As per history of present illness and as reviewed below otherwise noncontributory. FAMILY HISTORY: As per history of present illness and as reviewed below otherwise noncontributory. EXAMINATION OF ORGAN SYSTEMS/BODY AREAS: Constitutional: Blood pressure was 127/72, heart rate 55, respiratory rate 18 with an oxygen saturation of 100% on room air. Temperature 35.3 General: Well-appearing woman who is in no acute distress Psychiatric: Appropriate mood and affect. Eyes: No scleral icterus or conjunctival erythema ENMT: Moist mucous membranes. No pharyngeal erythema Cardiovascular: Regular, rate, and rhythm. No gallops, murmurs, or rubs. Bilateral upper extremity pulses symmetric and intact. No peripheral edema. No JVD. Respiratory: Lungs clear to auscultation bilaterally. No wheezes, rales, or rhonchi. Gastrointestinal: Soft, non-tender, non-distended. Normoactive bowel sounds Genitourinary: No suprapubic tenderness Musculoskeletal: Normal range of motion. Skin: No lesions or abrasions. Neurological: Alert, GCS 15 MEDICAL DECISION MAKING AND COURSE IN THE ED WITH INTERPRETATION/REVIEW OF DIAGNOSTIC STUDIES: This is a 35-year-old woman with insulin-dependent diabetes mellitus who comes to the emergency department with acute hypoglycemic episode who has normal vital signs and overall appears well. At this time we did obtain a repeat glucose which was found to be 211. The patient was able to tolerate juice by mouth. At this time I do not believe any further work-up is indicated as the patient's hypoxemia is secondary to decreased p.o. intake. Encouraged her to carry glucose tablets and to return if she has any new or worsening symptoms. She was amenable to discharge at this time and had no further questions. DISPOSITION: The patient was discharged home in stable condition. The patient will follow up with primary physician in 3 to 5 days CONDITION: Fair PROCEDURES: None FINAL IMPRESSION(S)/DIAGNOSES: 1. Acute hypoglycemic episode Jonnie Núñez M.D. - Related Data Allergies Allergy/AdvReac Type Severity Reaction Status Date / Time No Known Allergies Allergy Verified 02/19/21 17:57 Home Meds: Home Meds Empagliflozin [Jardiance] 1 dose PO DAILY 02/19/21 [History] Escitalopram [Lexapro] 1 dose PO DAILY 02/19/21 [History] Exenatide Microspheres [Bydureon] 1 dose PO ASDIRECTED 02/19/21 [History] Insulin Glarg,Human.Rec.Analog [Lantus] 1 dose .ROUTE DAILY 02/19/21 [History] Rosuvastatin [Crestor] 1 dose PO DAILY 02/19/21 [History] levETIRAcetam [Levetiracetam] 1 dose PO DAILY 02/19/21 [History] lisinopriL [Lisinopril] 1 tab PO DAILY 02/19/21 [History] Past Medical History - Past Health History Medical/Surgical History: Denies Medical/Surgical History HEENT History: Reports: None Genitourinary History: Reports: Pyelonephritis [employer] History: Reports: Neurological History: Reports: Seizure, Other (See Below) Other Neuro History: epilepsy Endocrine/Metabolic History: Reports: Diabetes, Gestational - Infectious Disease History Infectious Disease History: Reports: Chicken Pox - Past Surgical History Female Surgical History: Reports: Section, Kidney stone extraction Musculoskeletal Surgical History: Reports: Other (See Below) Other Musculoskeletal Surgeries/Procedures:: ankle surgery Social & Family History - Family History Family Medical History: No Pertinent Family History Cardiac: Reports: Other (See Below) Other Cardiac Family History: heart disease, does not know specifics Neurological: Reports: Other (See Below) Other Neurological Family History: epilepsy Endocrine/Metabolic: Reports: Diabetes, type II Oncologic: Reports: Prostate - Caffeine Use Caffeine Use: Reports: Soda ED ROS GENERAL - Review of Systems Review Of Systems: See Below ED EXAM, GENERAL - Physical Exam Exam: See Below Course - Vital Signs Last Recorded V/S: Last Vital Signs Temp 35.4 C L 02/19/21 18:42 Pulse 60 02/19/21 18:42 Resp 16 02/19/21 18:42 BP 129/74 02/19/21 18:42 Pulse Ox 99 02/19/21 18:42 - Orders/Labs/Meds Labs: Laboratory Tests 02/19/21 Range/Units 18:21 POC Glucose 211 H (70-99) mg/dL Departure - Departure Time of Disposition: 18:32 Disposition: Home, Self-Care 01 Condition: Fair Clinical Impression: Hypoglycemia - Discharge Information *PRESCRIPTION DRUG MONITORING PROGRAM REVIEWED*: No *COPY OF PRESCRIPTION DRUG MONITORING REPORT IN PATIENT ALEXANDR: No Instructions: Preventing Hypoglycemia, Hypoglycemia, [id number] Referrals: Candy Jara NP [Primary Care Provider] - Forms: ED Department Discharge Additional Instructions: You were evaluated today on an emergent basis. I do believe that your symptoms are likely secondary to you not eating today and your sugar going below. As discussed it is important that you maintain adequate diet given that you are on insulin. Remember the symptoms of low sugar including sweating, weakness. If your sugar goes low or you can end up in a coma. Therefore it is important that you monitor your sugar at home. You were able to tolerate juice here and your sugar stayed stable. I recommend that you follow-up with your primary care physician in 3 to 5 days for reevaluation. [facility] [address] [place] [id number] [facility] [address] [place] [id number] The patient is informed of any results of their evaluation and diagnostic workup and all questions are answered. They are given discharge instructions and return precautions. The patient is stable for discharge. The patient states they understand and agree with the plan and that they will return if their symptoms get worse or if they have any new concerns. The following information is given to patients seen in the emergency department who are being discharged to home. This information is to outline your options for follow-up care. We provide all patients seen in our emergency department with a follow-up referral. The need for follow-up, as well as the timing and circumstances, are variable depending upon the specifics of your emergency department visit. If you don't have a primary care physician on staff, we will provide you with a referral. We always advise you to contact your personal physician following an emergency department visit to inform them of the circumstance of the visit and for follow-up with them and/or the need for any referrals to a consulting specialist. The emergency department will also refer you to a specialist when appropriate. This referral assures that you have the opportunity for follow-up care with a specialist. All of these measure are taken in an effort to provide you with optimal care, which includes your follow-up. Under all circumstances we always encourage you to contact your private physician who remains a resource for coordinating your care. When calling for follow-up care, please make the office aware that this follow-up is from your recent emergency room visit. If for any reason you are refused follow-up, please contact the [facility] Emergency Department at and asked to speak to the emergency department charge nurse. Sepsis Event Note (ED) - Evaluation Sepsis Screening Result: No Definite Risk
[2021-02-19 18:45] VITALS: BP 129/74; PULSE 60
== END 2021-02-19 18:46 | disposition home or self-care (01) ==
LOC: MW.ED 17:46
DX: E11.649 Type 2 diabetes mellitus with hypoglycemia without coma (principal); Z79.4 Long term (current) use of insulin
CPT/HCPCS: 82947; 99283; 99285

== ENCOUNTER 2021-04-26 10:37 | Emergency (ER) | payer MEDICAID ==
[2021-04-26 10:58] VITALS: BP 132/76; PULSE 70
--- NOTE | 2021-04-26 11:05 | EDM.PDOC ---
ED HPI GENERAL MEDICAL PROBLEM - General Chief Complaint: ENT Problem Stated Complaint: EAR INFECTION Time Seen by Provider: 04/26/21 10:40 - History of Present Illness INITIAL COMMENTS - FREE TEXT/NARRATIVE: 35-year-old female with a history of diabetes mellitus and epilepsy presents to the ER complaining of right ear pain since this morning. Patient states that she woke up and was having pain in her right ear. She used hydrogen peroxide to try and flush out the pain. Pain did not result. She denies headache, fever, chills, discharge, post auricle pain, sore throat, runny nose, cough, chest pain, palpitations, abdominal pain, nausea, vomiting or diarrhea. No recent change in daily activities including swimming. Patient states she had an ear infection when she was a child. Denies any allergies to medications. right ear Pain Score (Numeric/FACES): 6 - Related Data Allergies Allergy/AdvReac Type Severity Reaction Status Date / Time No Known Allergies Allergy Verified 04/26/21 10:58 Home Meds: Home Meds Empagliflozin [Jardiance] 1 dose PO DAILY 02/19/21 [History] Escitalopram [Lexapro] 1 dose PO DAILY 02/19/21 [History] Exenatide Microspheres [Bydureon] 1 dose PO ASDIRECTED 02/19/21 [History] Insulin Glarg,Human.Rec.Analog [Lantus] 1 dose .ROUTE DAILY 02/19/21 [History] Rosuvastatin [Crestor] 1 dose PO DAILY 02/19/21 [History] levETIRAcetam [Levetiracetam] 1 dose PO DAILY 02/19/21 [History] lisinopriL [Lisinopril] 1 tab PO DAILY 02/19/21 [History] Amoxicillin/Clavulanate K [Augmentin 875-125 MG] 1 tab PO BID 7 Days #14 tablet 04/26/21 [Rx] Past Medical History - Past Health History Medical/Surgical History: Denies Medical/Surgical History HEENT History: Reports: None Genitourinary History: Reports: Pyelonephritis [employer]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: Reports: Neurological History: Reports: Seizure, Other (See Below) Other Neuro History: epilepsy Endocrine/Metabolic History: Reports: Diabetes, Gestational - Infectious Disease History Infectious Disease History: Reports: Chicken Pox - Past Surgical History Female Surgical History: Reports: Section, Kidney stone extraction Musculoskeletal Surgical History: Reports: Other (See Below) Other Musculoskeletal Surgeries/Procedures:: ankle surgery Social & Family History - Family History Family Medical History: No Pertinent Family History Cardiac: Reports: Other (See Below) Other Cardiac Family History: heart disease, does not know specifics Neurological: Reports: Other (See Below) Other Neurological Family History: epilepsy Endocrine/Metabolic: Reports: Diabetes, type II Oncologic: Reports: Prostate - Caffeine Use Caffeine Use: Reports: Soda ED ROS GENERAL - Review of Systems Review Of Systems: See Below Constitutional: Denies: Fever, Chills HEENT: Denies: Ear Discharge, Eye Discharge, Eye Pain, Hearing Loss, Nosebleed, Rhinitis, Sinus Problem, Throat Pain, Vision Change Respiratory: Denies: Shortness of Breath, Wheezing Cardiovascular: Denies: Chest Pain, Palpitations Endocrine: Denies: Fatigue, Polydypsia, Polyuria GI/Abdominal: Denies: Abdominal Pain, Diarrhea, Nausea, Vomiting Skin: Denies: Rash Neurological: Denies: Confusion, Dizziness, Headache ED EXAM, GENERAL - Physical Exam Exam: See Below General Appearance: Alert, No Apparent Distress Eye Exam: Bilateral Eye: PERRL Ears: Normal External Exam, Other Ear Exam: Right Ear: Erythema, TM Red, TM Bulging, Left Ear: Canal Normal, Bilateral Ear: Auricle Normal Nose: Normal Inspection, Normal Mucosa Throat/Mouth: Normal Inspection, Normal Lips, Normal Teeth, Normal Gums, Normal Oropharynx Head: Atraumatic, Normocephalic Neck: Normal Inspection, Supple, Non-Tender, Full Range of Motion Respiratory/Chest: No Respiratory Distress, Lungs Clear Cardiovascular: Regular Rate, Rhythm GI/Abdominal: Soft, Non-Tender, No Distention Neurological: Alert, Oriented, CN II-XII Intact Skin Exam: Warm, Dry, Intact, No Rash Lymphatic: No Adenopathy Course - Vital Signs Last Recorded V/S: Last Vital Signs Temp 97.8 F 04/26/21 10:55 Pulse 70 04/26/21 10:55 Resp 16 04/26/21 10:55 BP 132/76 04/26/21 10:55 Pulse Ox 98 04/26/21 10:55 Departure - Departure Time of Disposition: 11:05 Disposition: Home, Self-Care 01 Clinical Impression: Acute otitis media, right - Discharge Information *PRESCRIPTION DRUG MONITORING PROGRAM REVIEWED*: Not Applicable *COPY OF PRESCRIPTION DRUG MONITORING REPORT IN PATIENT ALEXANDR: Not Applicable Prescriptions: Amoxicillin/Clavulanate K [Augmentin 875-125 MG] 1 tab PO BID 7 Days #14 tablet Instructions: Otitis Media, Adult, [id number] Referrals: PCP,None [Primary Care Provider] - Forms: ED Department Discharge Additional Instructions: The following information is given to patients seen in the emergency department who are being discharged to home. This information is to outline your options for follow-up care. We provide all patients seen in our emergency department with a follow-up referral. The need for follow-up, as well as the timing and circumstances, are variable depending upon the specifics of your emergency department visit. If you don't have a primary care physician on staff, we will provide you with a referral. We always advise you to contact your personal physician following an emergency department visit to inform them of the circumstance of the visit and for follow-up with them and/or the need for any referrals to a consulting specialist. The emergency department will also refer you to a specialist when appropriate. This referral assures that you have the opportunity for follow-up care with a specialist. All of these measure are taken in an effort to provide you with optimal care, which includes your follow-up. Under all circumstances we always encourage you to contact your private physician who remains a resource for coordinating your care. When calling for follow-up care, please make the office aware that this follow-up is from your recent emergency room visit. If for any reason you are refused follow-up, please contact the [facility] Emergency Department at and asked to speak to the emergency department charge nurse. [facility] [address] [place] [address] [id number] [id number] Thank you for choosing the [facility] emergency department in [place] for your medical needs today. It was a pleasure caring for you. Today you were seen in the emergency department for ear infection You are seen in the ER today for an infection of your right ear. You will be given a prescription for Augmentin. Please take 1 tablet twice daily for a total of 7 days. If you experience increased ear pain, fever, chills, changes in hearing, headaches, dizziness, lightheadedness, loss of consciousness please seek medical attention immediately. Sepsis Event Note (ED) - Focused Exam Vital Signs: Vital Signs Temp Pulse Resp BP Pulse Ox 04/26/21 10:55 97.8 F 70 16 132/76 98 - Problem List & Annotations (1) Acute otitis media, right SNOMED Code(s): 309107197 Code(s): H66.91 - OTITIS MEDIA, UNSPECIFIED, RIGHT EAR Status: Acute - Problem List Review Problem List Initiated/Reviewed/Updated: Yes - Assessment/Plan Plan: Right acute otitis media: Patient denies preceding URI or allergic rhinitis. Tympanic membrane intact. Afebrile. No blisters or vesicles on tympanic membrane. Ear canal normal. Patient will be prescribed Augmentin. No recent antibiotic use. Return precautions given. Follow-up with primary care physician.
== END 2021-04-26 11:32 | disposition home or self-care (01) ==
LOC: MW.ED 10:37
DX: H66.91 Otitis media, unspecified, right ear (principal)
CPT/HCPCS: 99282

== ENCOUNTER 2021-05-30 13:12 | Emergency (ER) | payer MEDICAID ==
--- NOTE | 2021-05-30 13:26 | EDM.PDOC ---
ED HPI GENERAL MEDICAL PROBLEM - General Chief Complaint: Neuro Symptoms/Deficits Stated Complaint: EMS Time Seen by Provider: 05/30/21 13:20 Source of Information: Reports: Patient History Limitations: Reports: No Limitations - History of Present Illness INITIAL COMMENTS - FREE TEXT/NARRATIVE: Patient is a 35-year-old female history of seizures on Keppra presents today for seizure. The seizure lasted for 2 minutes per EMS and resolved on its own. Patient states that she is unsure if she took her medication this morning. She denies any pain currently on exam is ANO x2 does not know the date or the year. She denies taking any drugs or alcohol recently. - Related Data Allergies Allergy/AdvReac Type Severity Reaction Status Date / Time No Known Allergies Allergy Verified 05/30/21 13:20 Home Meds: Home Meds Empagliflozin [Jardiance] 1 dose PO DAILY 02/19/21 [History] Escitalopram [Lexapro] 1 dose PO DAILY 02/19/21 [History] Exenatide Microspheres [Bydureon] 1 dose PO ASDIRECTED 02/19/21 [History] Insulin Glarg,Human.Rec.Analog [Lantus] 1 dose .ROUTE DAILY 02/19/21 [History] Rosuvastatin [Crestor] 1 dose PO DAILY 02/19/21 [History] levETIRAcetam [Levetiracetam] 1 dose PO DAILY 02/19/21 [History] lisinopriL [Lisinopril] 1 tab PO DAILY 02/19/21 [History] Amoxicillin/Clavulanate K [Augmentin 875-125 MG] 1 tab PO BID 7 Days #14 tablet 04/26/21 [Rx] Past Medical History - Past Health History Medical/Surgical History: Denies Medical/Surgical History HEENT History: Reports: None Cardiovascular History: Reports: None Respiratory History: Reports: None Gastrointestinal History: Reports: None Genitourinary History: Reports: Pyelonephritis [employer] History: Reports: Musculoskeletal History: Reports: None Neurological History: Reports: Seizure, Other (See Below) Other Neuro History: epilepsy Psychiatric History: Reports: None Endocrine/Metabolic History: Reports: Diabetes, Gestational Hematologic History: Reports: None Immunologic History: Reports: None Oncologic (Cancer) History: Reports: None Dermatologic History: Reports: None - Infectious Disease History Infectious Disease History: Reports: Chicken Pox - Past Surgical History Head Surgeries/Procedures: Reports: None HEENT Surgical History: Reports: None Cardiovascular Surgical History: Reports: None Respiratory Surgical History: Reports: None GI Surgical History: Reports: None Female Surgical History: Reports: Section, Kidney stone extraction Neurological Surgical History: Reports: None Musculoskeletal Surgical History: Reports: Other (See Below) Other Musculoskeletal Surgeries/Procedures:: ankle surgery Oncologic Surgical History: Reports: None Dermatological Surgical History: Reports: None Social & Family History - Family History Family Medical History: No Pertinent Family History Cardiac: Reports: Other (See Below) Other Cardiac Family History: heart disease, does not know specifics Neurological: Reports: Other (See Below) Other Neurological Family History: epilepsy Endocrine/Metabolic: Reports: Diabetes, type II Oncologic: Reports: Prostate - Tobacco Use Second Hand Smoke Exposure: No - Caffeine Use Caffeine Use: Reports: None - Recreational Drug Use Recreational Drug Use: Yes Recreational Drug Type: Reports: Marijuana/Hashish ED ROS GENERAL - Review of Systems Review Of Systems: See Below Constitutional: Reports: No Symptoms HEENT: Reports: No Symptoms Respiratory: Reports: No Symptoms Cardiovascular: Reports: No Symptoms Endocrine: Reports: No Symptoms GI/Abdominal: Reports: No Symptoms : Reports: No Symptoms Musculoskeletal: Reports: No Symptoms Skin: Reports: No Symptoms Neurological: Reports: Seizure Psychiatric: Reports: No Symptoms Hematologic/Lymphatic: Reports: No Symptoms Immunologic: Reports: No Symptoms ED EXAM, NEURO - Physical Exam Exam: See Below Exam Limited By: No Limitations General Appearance: Alert, WD/WN, No Apparent Distress Eye Exam: Bilateral Eye: EOMI, PERRL Throat/Mouth: Normal Inspection Head Exam: Atraumatic Neck: Normal Inspection, Supple, Non-Tender Respiratory/Chest: No Respiratory Distress, Lungs Clear, Normal Breath Sounds Cardiovascular: Normal Peripheral Pulses, Regular Rate, Rhythm GI/Abdominal: Normal Bowel Sounds, Soft, Non-Tender Neurological: Alert (Ox2), Normal Mood/Affect, Normal Dorsiflexion, CN II-XII Intact, Normal Gait, Normal Reflexes, No Motor/Sensory Deficits Extremities: Normal Inspection Course - Vital Signs Last Recorded V/S: Last Vital Signs Temp 97.9 F 05/30/21 13:17 Pulse 125 H 05/30/21 14:22 Resp 37 H 05/30/21 14:22 BP 138/74 05/30/21 14:22 Pulse Ox 98 05/30/21 14:22 - Orders/Labs/Meds Orders: Active Orders 24 hr Category Date Time Status DRUG SCREEN, URINE [URCHEM] Stat Lab 05/30/21 13:22 Ordered UA W/ALIYA RFLX IF INDICATED [URIN] Stat Lab 05/30/21 13:23 Ordered Labs: Laboratory Tests 05/30/21 05/30/21 05/30/21 Range/Units 13:25 13:25 13:25 WBC 9.14 (4.0-11.0) K/uL RBC 4.25 L (4.30-5.90) M/uL Hgb 13.8 (12.0-16.0) g/dL Hct 41.0 (36.0-46.0) % MCV 96.5 (80.0-98.0) fL MCH 32.5 H (27.0-32.0) pg MCHC 33.7 (31.0-37.0) g/dL RDW Std Deviation 47.2 (28.0-62.0) fl RDW Coeff of Ifeoma 14 (11.0-15.0) % Plt Count 216 (150-400) K/uL MPV 9.70 (7.40-12.00) fL Neut % (Auto) 64.5 (48.0-80.0) % Lymph % (Auto) 27.9 (16.0-40.0) % [place] % (Auto) 4.3 (0.0-15.0) % Eos % (Auto) 3.1 (0.0-7.0) % Baso % (Auto) 0.2 (0.0-1.5) % Neut # (Auto) 5.9 H (1.4-5.7) K/uL Lymph # (Auto) 2.6 H (0.6-2.4) K/uL [place] # (Auto) 0.4 (0.0-0.8) K/uL Eos # (Auto) 0.3 (0.0-0.7) K/uL Baso # (Auto) 0.0 (0.0-0.1) K/uL Nucleated RBC % 0.0 /100WBC Nucleated RBCs # 0 K/uL Sodium 138 (136-145) mmol/L Potassium 4.0 (3.5-5.1) mmol/L Chloride 99 (98-107) mmol/L Carbon Dioxide 19.3 L (21.0-32.0) mmol/L BUN 15 (7.0-18.0) mg/dL Creatinine 0.9 (0.6-1.0) mg/dL Est Cr Clr Drug Dosing 61.47 mL/min Estimated GFR (MDRD) > 60.0 ml/min Glucose 115 H (74-106) mg/dL Calcium 9.5 (8.5-10.1) mg/dL Phosphorus 3.2 (2.6-4.7) mg/dL Magnesium 1.5 L (1.8-2.4) mg/dL Total Bilirubin 0.4 (0.2-1.0) mg/dL AST 98 H (15-37) IU/L ALT 68 H (14-63) IU/L Alkaline Phosphatase 114 (46-116) U/L Creatine Kinase 193 (26-308) U/L Total Protein 8.9 H (6.4-8.2) g/dL Albumin 4.1 (3.4-5.0) g/dL Globulin 4.8 H (2.6-4.0) g/dL Albumin/Globulin Ratio 0.9 (0.9-1.6) HCG, Qual NEGATIVE (NEG) Ethyl Alcohol 6 mg/dL SARS-CoV-2 RNA (BECKY) (NEGATIVE) 05/30/21 Range/Units 14:40 WBC (4.0-11.0) K/uL RBC (4.30-5.90) M/uL Hgb (12.0-16.0) g/dL Hct (36.0-46.0) % MCV (80.0-98.0) fL MCH (27.0-32.0) pg MCHC (31.0-37.0) g/dL RDW Std Deviation (28.0-62.0) fl RDW Coeff of Ifeoma (11.0-15.0) % Plt Count (150-400) K/uL MPV (7.40-12.00) fL Neut % (Auto) (48.0-80.0) % Lymph % (Auto) (16.0-40.0) % [place] % (Auto) (0.0-15.0) % Eos % (Auto) (0.0-7.0) % Baso % (Auto) (0.0-1.5) % Neut # (Auto) (1.4-5.7) K/uL Lymph # (Auto) (0.6-2.4) K/uL [place] # (Auto) (0.0-0.8) K/uL Eos # (Auto) (0.0-0.7) K/uL Baso # (Auto) (0.0-0.1) K/uL Nucleated RBC % /100WBC Nucleated RBCs # K/uL Sodium (136-145) mmol/L Potassium (3.5-5.1) mmol/L Chloride (98-107) mmol/L Carbon Dioxide (21.0-32.0) mmol/L BUN (7.0-18.0) mg/dL Creatinine (0.6-1.0) mg/dL Est Cr Clr Drug Dosing mL/min Estimated GFR (MDRD) ml/min Glucose (74-106) mg/dL Calcium (8.5-10.1) mg/dL Phosphorus (2.6-4.7) mg/dL Magnesium (1.8-2.4) mg/dL Total Bilirubin (0.2-1.0) mg/dL AST (15-37) IU/L ALT (14-63) IU/L Alkaline Phosphatase (46-116) U/L Creatine Kinase (26-308) U/L Total Protein (6.4-8.2) g/dL Albumin (3.4-5.0) g/dL Globulin (2.6-4.0) g/dL Albumin/Globulin Ratio (0.9-1.6) HCG, Qual (NEG) Ethyl Alcohol mg/dL SARS-CoV-2 RNA (BECKY) NEGATIVE (NEGATIVE) Meds: Medications Discontinued Medications Generic Name Dose Route Start Last Admin Trade Name Freq PRN Reason Stop Dose Admin Levetiracetam 1,500 mg/ 115 mls @ 460 mls/hr 05/30/21 14:19 05/30/21 14:40 Dextrose/Water IV 05/30/21 14:33 460 mls/hr NOW STA Administration Sodium Chloride 1,000 mls @ 1,000 mls/hr 05/30/21 16:31 05/30/21 16:41 Normal Saline IV 05/30/21 17:30 1,000 mls/hr .Bolus ONE Administration Lorazepam 2 mg 05/30/21 14:15 05/30/21 14:24 Lorazepam 2 Mg/Ml Sdv IVPUSH 05/30/21 14:16 2 mg ONETIME ONE Administration Lorazepam Confirm 05/30/21 14:16 05/30/21 14:24 Lorazepam 2 Mg/Ml Sdv Administered 05/30/21 14:17 Not Given Dose 2 mg .ROUTE .Spring-MED ONE - Re-Assessments/Exams Free Text/Narrative Re-Assessment/Exam: 05/30/21 16:10 Patient had a second seizure in the ER. We gave her 2 Ativan. We also will help her Keppra. Patient is back to baseline now feels a lot better. We did a CT scan patient head was also negative. We will continue to observe the patient remains at baseline can be discharged. 05/30/21 17:35 Patient is back to baseline she has a family member here with her patient will be released into the custody. Patient instructed on not to drive or operate heavy machinery until she sees a neurologist. Departure - Departure Time of Disposition: 17:36 Disposition: Home, Self-Care 01 Condition: Good Clinical Impression: Seizure - Discharge Information *PRESCRIPTION DRUG MONITORING PROGRAM REVIEWED*: Not Applicable *COPY OF PRESCRIPTION DRUG MONITORING REPORT IN PATIENT ALEXANDR: Not Applicable Instructions: Seizure, Adult, [id number] Referrals: Charlee Calvo PA [Primary Care Provider] - Forms: ED Department Discharge Additional Instructions: You are seen today for a seizure. He also had a seizure evaluated in the ER emergency department. We did labs and a CT scan of the head that was done within normal limits. We also loaded you with Keppra. You remained at your baseline. We recommend you call your neurologist as you may need to have adjustments to your medications or new medication added. Please follow-up with your primary doctor or return to ER if you have any other concerns or symptom. Please do not drive or operate any heavy machinery until you see your neurologist. The following information is given to patients seen in the emergency department who are being discharged to home. This information is to outline your options for follow-up care. We provide all patients seen in our emergency department with a follow-up referral. The need for follow-up, as well as the timing and circumstances, are variable depending upon the specifics of your emergency department visit. If you don't have a primary care physician on staff, we will provide you with a referral. We always advise you to contact your personal physician following an emergency department visit to inform them of the circumstance of the visit and for follow-up with them and/or the need for any referrals to a consulting specialist. The emergency department will also refer you to a specialist when appropriate. This referral assures that you have the opportunity for follow-up care with a specialist. All of these measure are taken in an effort to provide you with optimal care, which includes your follow-up. Under all circumstances we always encourage you to contact your private physician who remains a resource for coordinating your care. When calling for follow-up care, please make the office aware that this follow-up is from your recent emergency room visit. If for any reason you are refused follow-up, please contact the [facility] Emergency Department at and asked to speak to the emergency department charge nurse. Please follow up with your primary care physician. If you do not have a primary care physician, see below: [facility] - Neurology Professional [address], [address] [place] [address] Sepsis Event Note (ED) - Evaluation Sepsis Screening Result: No Definite Risk - Focused Exam Vital Signs: Vital Signs Temp Pulse Resp BP Pulse Ox 05/30/21 14:22 125 H 37 H 138/74 98 05/30/21 13:17 97.9 F 110 H 18 153/96 H 95 - My Orders Last 24 Hours: My Active Orders 05/30/21 13:22 DRUG SCREEN, URINE [URCHEM] Stat 05/30/21 13:23 UA W/ALIYA RFLX IF INDICATED [URIN] Stat - Assessment/Plan Last 24 Hours: My Active Orders 05/30/21 13:22 DRUG SCREEN, URINE [URCHEM] Stat 05/30/21 13:23 UA W/ALIYA RFLX IF INDICATED [URIN] Stat Plan: Patient is a 35-year-old female who presents today for a seizure. Patient has a history of seizures the seizure lasts about 2 minutes today and resolved on its own. Per patient she has not had a seizure in a while. She is unsure if she took her medication this morning. Will obtain labs and reassess patient.
[2021-05-30] MEDS ORDERED: LORazepam 2 MG/ML SDV IVPUSH ONE (14:15)
[2021-05-30] MEDS ORDERED: LORazepam 2 MG/ML SDV ONE (14:16)
[2021-05-30 14:31] LABS: BLOOD UREA NITROGEN,BUN 15 mg/dL (7.0-18.0); CARBON DIOXIDE,CO2 19.3 mmol/L (21.0-32.0); CHLORIDE,CL 99 mmol/L (98-107); GLUCOSE RANDOM 115 mg/dL (74-106); SODIUM,NA 138 mmol/L (136-145)
--- NOTE | 2021-05-30 15:40 | CT ---
INDICATION: Breakthrough seizure. TECHNIQUE: CT head without contrast. COMPARISON: CT head dated 10/30/2020. FINDINGS: Cerebral parenchyma: No evidence of acute territorial infarct. No acute intraparenchymal hemorrhage. No significant mass effect/midline shift. Normal howe-white matter differentiation. Extra-axial spaces: No extra-axial collection or hemorrhage. Ventricles: Unremarkable. Calvarium: Intact. Visualized paranasal sinuses/mastoid air cells: Mild mucosal thickening of the right maxillary sinus and right anterior ethmoid air cells. Posterior fossa: No cerebellar tonsillar herniation. Visualized orbits: Unremarkable. IMPRESSION: No acute intracranial abnormality. Please note that all CT scans at this facility use dose modulation, iterative reconstruction, and/or weight-based dosing when appropriate to reduce radiation dose to as low as reasonably achievable. Dictated by Marty Dukes MD @ 05/30/2021 3:40:06 PM (Electronically Signed)
[2021-05-30] MEDS ORDERED: Sodium Chloride 0.9% 1,000 ML IV ONE (16:31)
[2021-05-30 18:38] VITALS: BP 119/76; PULSE 85
== END 2021-05-30 18:33 | disposition home or self-care (01) ==
LOC: MW.ED 13:12
DX: R56.9 Unspecified convulsions (principal); Z79.899 Other long term (current) drug therapy; Z20.822 Contact with and (suspected) exposure to COVID-19
CPT/HCPCS: 36415; 70450; 80053; 80305; 80307; 81001; 82550; 83735; 84100; 84703; 85025; 87635; 96365; 96375; 99285; J1953; J2060; J7030; U0002

== ENCOUNTER 2021-07-03 16:37 | Emergency (ER) | payer MEDICAID ==
[2021-07-03] MEDS ORDERED: Sodium Chloride 0.9% 1,000 ML IV ONE (18:43)
[2021-07-03] MEDS ORDERED: LORazepam 2 MG/ML SDV IVPUSH ONE (18:44)
--- NOTE | 2021-07-03 18:44 | EDM.PDOCBH ---
ED HPI GENERAL MEDICAL PROBLEM - General Chief Complaint: Drug or Alcohol Abuse Stated Complaint: ALCOHOL WD Time Seen by Provider: 07/03/21 18:20 Source of Information: Reports: Patient History Limitations: Reports: No Limitations - History of Present Illness INITIAL COMMENTS - FREE TEXT/NARRATIVE: HISTORY AND PHYSICAL: History of present illness: Patient is a 35-year-old female who presents to the emergency room requesting alcohol detox. Patient initially had gone to her primary care provider with this request and felt she was going through withdrawals. He recommended she come through the emergency room for work-up and placement. Patient states she is a daily drinker, consisting of 10 shots of vodka and 12 cans of beer per day. Patient states her last alcoholic beverage was last evening. Currently she feels irritable, tremulous and is fearful of withdrawals. She is unsure of the last time she has ever been sober, states its been several years. Past medical history of type 2 diabetes and epilepsy. Patient denies any fever, chills, headache, change in vision, syncope or near syncope. Denies any chest pain, back pain, shortness of breath or cough. Denies any abdominal pain, nausea, vomiting, diarrhea, constipation or dysuria. Has not noted any blood in urine or stool. Patient has been eating and drinking appropriately. No recent travel or sick contacts. Review of systems: As per history of present illness and below otherwise all systems reviewed and negative. Past medical history: As per history of present illness and as reviewed below otherwise noncontributory. Surgical history: As per history of present illness and as reviewed below otherwise noncontributory. Social history: See social history for further information Family history: As per history of present illness and as reviewed below otherwise noncontributory. Physical exam: General: Well developed and well nourished 35 year old female. Alert and orientated x 3. Nontoxic in appearance and in no acute distress. Vital signs are stable and have been reviewed by me. Nursing notes were reviewed. HEENT: Atraumatic, normocephalic, pupils equal and reactive bilaterally, negati ve for conjunctival pallor or scleral icterus, mucous membranes moist, TMs normal bilaterally, throat clear, neck supple, nontender, trachea midline. No drooling or trismus noted. No meningeal signs. No hot potato voice noted. Lungs: Clear to auscultation bilaterally. No wheezes, rales, or rhonchi. Chest nontender. Normal work of breathing, no accessory muscles used. Heart: S1S2, regular rate and rhythm without overt murmur, gallops, or rubs. No JVD. No peripheral edema Abdomen: Soft, nondistended, nontender. Normoactive bowel sounds. Negative for masses or costovertebral tenderness. Skin: Intact, warm, dry. No lesions or rashes noted. Hematologic: No petechiae or purpra. Mucosa appropriate color and normal nail bed color and refill. Extremities: Atraumatic, moves all extremities per self without difficulty or deficits, negative for cords or calf pain. Neurovascular unremarkable. Neuro: Awake, alert, oriented. Cranial nerves II through XII unremarkable. Cerebellum unremarkable. Motor and sensory unremarkable throughout. Exam nonfocal. Psychiatric: Mood and affect are appropriate. Normal thought process. Answering questions appropriately. Please note that the patient was seen and evaluated during the 2019 SARS-CoV-2 novel coronavirus pandemic period. Community viral transmission is ongoing at time of this encounter and the emergency department is operating under pandemic response procedures. Medical Decision Making: Patient is a 35-year-old female who presents to the emergency room requesting inpatient alcohol detox. She states she has been a daily drinker for "years". Unsure of the last time she has abstained from drinking any alcohol. Reports her last alcoholic drink was 14 to 16 hours ago. She feels anxious and irritable. Patient is aware of the limitations our community has for inpatient alcohol treatment programming. I did inform her of the bed shortage around the state and that the likelihood of finding placement today would be very low. We will do basic lab work for patient to make sure she is healthy enough to follow- up with [facility] and give her IV fluid/Ativan for comfort purposes. Patient's thyroid hormone is elevated. Informed patient of this and the need to follow-up with her primary care provider Charlee Sotomayor NP. Patient states she does feel less irritable or anxious and is comfortable going home. Vital signs are stable. Negative CIWA. I have talked with the patient about today's findings, in addition to providing specific details for plan of care. I did give [facility] information, encouraged to follow-up tomorrow morning as she may be able to utilize there CRU unit. Reassessment at the time of disposition demonstrates that the patient is in no acute distress. The patient is stable for discharge, counseling was provided and we discussed in great detail signs and symptoms that would prompt them to return to the Emergency Department. Medication, follow up and supportive care measures were reviewed and discussed. Voices understanding and is agreeable to plan of care. Denies any further questions or concerns at this time. Diagnostics: CBC, CMP, UA, DRGU, HCGU, Mag, Etoh, COVID/influenza Therapeutics: IV fluids, Ativan Prescription: None Impression: Alcohol Abuse Hyperthyroidism Plan: 1. You were evaluated today on an emergent basis. Your thyroid lab value is elevated. We encourage you to follow up with your primary care provider for re- evaluation and further care/management of your thyroid. 2. You can alternate Tylenol and ibuprofen as needed for pain and fever man agement. 3. Currently there is a bed shortage in [place]. I would encourage you to go to [facility] in the morning to talk about outpatient/inpatient services. They open their doors at 8am and take walk-ins. 4. If your symptoms should worsen, new symptoms develop or any of the signs and symptoms we discussed should arise please return to the emergency room or call 911 (if needed). Definitive disposition and diagnosis as appropriate pending reevaluation and review of above. Duration: Chronic - Related Data Allergies Allergy/AdvReac Type Severity Reaction Status Date / Time No Known Allergies Allergy Verified 07/03/21 18:48 Home Meds: Home Meds Empagliflozin [Jardiance] 1 dose PO DAILY 02/19/21 [History] Escitalopram [Lexapro] 1 dose PO DAILY 02/19/21 [History] Exenatide Microspheres [Bydureon] 1 dose PO ASDIRECTED 02/19/21 [History] Insulin Glarg,Human.Rec.Analog [Lantus] 1 dose .ROUTE DAILY 02/19/21 [History] Rosuvastatin [Crestor] 1 dose PO DAILY 02/19/21 [History] levETIRAcetam [Levetiracetam] 1 dose PO DAILY 02/19/21 [History] lisinopriL [Lisinopril] 1 tab PO DAILY 02/19/21 [History] Amoxicillin/Clavulanate K [Augmentin 875-125 MG] 1 tab PO BID 7 Days #14 tablet 04/26/21 [Rx] Past Medical History - Past Health History Medical/Surgical History: Denies Medical/Surgical History HEENT History: Reports: None Cardiovascular History: Reports: None Respiratory History: Reports: None Gastrointestinal History: Reports: None Genitourinary History: Reports: Pyelonephritis [employer] History: Reports: Musculoskeletal History: Reports: None Neurological History: Reports: Seizure, Other (See Below) Other Neuro History: epilepsy Psychiatric History: Reports: None Endocrine/Metabolic History: Reports: Diabetes, Gestational Hematologic History: Reports: None Immunologic History: Reports: None Oncologic (Cancer) History: Reports: None Dermatologic History: Reports: None - Infectious Disease History Infectious Disease History: Reports: Chicken Pox - Past Surgical History Head Surgeries/Procedures: Reports: None HEENT Surgical History: Reports: None Cardiovascular Surgical History: Reports: None Respiratory Surgical History: Reports: None GI Surgical History: Reports: None Female Surgical History: Reports: Section, Kidney stone extraction Neurological Surgical History: Reports: None Musculoskeletal Surgical History: Reports: Other (See Below) Other Musculoskeletal Surgeries/Procedures:: ankle surgery Oncologic Surgical History: Reports: None Dermatological Surgical History: Reports: None Social & Family History - Family History Family Medical History: No Pertinent Family History Cardiac: Reports: Other (See Below) Other Cardiac Family History: heart disease, does not know specifics Neurological: Reports: Other (See Below) Other Neurological Family History: epilepsy Endocrine/Metabolic: Reports: Diabetes, type II Oncologic: Reports: Prostate - Caffeine Use Caffeine Use: Reports: None ED ROS GENERAL - Review of Systems Review Of Systems: Comprehensive ROS is negative, except as noted in HPI. ED EXAM, BEHAVIORAL HEALTH - Physical Exam Exam: See Below (See dictation) COURSE, BEHAVIORAL HEALTH COMP - Course Vital Signs: Last Vital Signs Temp 98.2 F 07/03/21 18:50 Pulse 73 07/03/21 18:50 Resp 20 07/03/21 18:50 BP 128/80 07/03/21 18:50 Pulse Ox 98 07/03/21 18:50 Orders, Labs, Meds: Laboratory Tests 07/03/21 07/03/21 07/03/21 Range/Units 19:06 19:32 19:32 WBC (4.0-11.0) K/uL RBC (4.30-5.90) M/uL Hgb (12.0-16.0) g/dL Hct (36.0-46.0) % MCV (80.0-98.0) fL MCH (27.0-32.0) pg MCHC (31.0-37.0) g/dL RDW Std Deviation (28.0-62.0) fl RDW Coeff of Ifeoma (11.0-15.0) % Plt Count (150-400) K/uL MPV (7.40-12.00) fL Neut % (Auto) (48.0-80.0) % Lymph % (Auto) (16.0-40.0) % Cannon % (Auto) (0.0-15.0) % Eos % (Auto) (0.0-7.0) % Baso % (Auto) (0.0-1.5) % Neut # (Auto) (1.4-5.7) K/uL Lymph # (Auto) (0.6-2.4) K/uL Cannon # (Auto) (0.0-0.8) K/uL Eos # (Auto) (0.0-0.7) K/uL Baso # (Auto) (0.0-0.1) K/uL Nucleated RBC % /100WBC Nucleated RBCs # K/uL Sodium (136-145) mmol/L Potassium (3.5-5.1) mmol/L Chloride (98-107) mmol/L Carbon Dioxide (21.0-32.0) mmol/L BUN (7.0-18.0) mg/dL Creatinine (0.6-1.0) mg/dL Est Cr Clr Drug Dosing Estimated GFR (MDRD) ml/min Glucose (74-106) mg/dL Calcium (8.5-10.1) mg/dL Magnesium (1.8-2.4) mg/dL Total Bilirubin (0.2-1.0) mg/dL AST (15-37) IU/L ALT (14-63) IU/L Alkaline Phosphatase (46-116) U/L Total Protein (6.4-8.2) g/dL Albumin (3.4-5.0) g/dL Globulin (2.6-4.0) g/dL Albumin/Globulin Ratio (0.9-1.6) Free T4 (0.76-1.46) ng/dL Free T3 (2.18-3.98) pg/mL TSH, Ultra Sensitive (0.36-3.74) uIU/mL Urine Color YELLOW Urine Appearance SLT CLOUDY Urine pH 5.5 (5.0-8.0) Ur Specific [place] 1.025 (1.001-1.035) Urine Protein NEGATIVE (NEGATIVE) mg/dL Urine Glucose (UA) >=1000 (NEGATIVE) mg/dL Urine Ketones 15 H (NEGATIVE) mg/dL Urine Occult Blood NEGATIVE (NEGATIVE) Urine Nitrite NEGATIVE (NEGATIVE) Urine Bilirubin NEGATIVE (NEGATIVE) Urine Urobilinogen 0.2 (<2.0) EU/dL Ur Leukocyte Esterase NEGATIVE (NEGATIVE) Urine HCG, Qual NEGATIVE (NEGATIVE) Urine Opiates Screen (NEGATIVE) Ur Oxycodone Screen (NEGATIVE) Urine Methadone Screen (NEGATIVE) Ur Barbiturates Screen (NEGATIVE) Ur Phencyclidine Scrn (NEGATIVE) Ur Amphetamine Screen (NEGATIVE) U Methamphetamines Scrn (NEGATIVE) U Benzodiazepines Scrn (NEGATIVE) U Cocaine Metab Screen (NEGATIVE) U Marijuana (THC) Screen (NEGATIVE) Ethyl Alcohol mg/dL Influenza Type A RNA NEGATIVE (NEGATIVE) Influenza Type B RNA NEGATIVE (NEGATIVE) SARS-CoV-2 RNA (BECKY) NEGATIVE (NEGATIVE) 07/03/21 07/03/21 07/03/21 Range/Units 19:32 20:19 20:19 WBC 8.46 (4.0-11.0) K/uL RBC 4.07 L (4.30-5.90) M/uL Hgb 13.2 (12.0-16.0) g/dL Hct 39.6 (36.0-46.0) % MCV 97.3 (80.0-98.0) fL MCH 32.4 H (27.0-32.0) pg MCHC 33.3 (31.0-37.0) g/dL RDW Std Deviation 45.5 (28.0-62.0) fl RDW Coeff of Ifeoma 13 (11.0-15.0) % Plt Count 141 L (150-400) K/uL MPV 9.60 (7.40-12.00) fL Neut % (Auto) 74.8 (48.0-80.0) % Lymph % (Auto) 17.4 (16.0-40.0) % Cannon % (Auto) 6.5 (0.0-15.0) % Eos % (Auto) 1.2 (0.0-7.0) % Baso % (Auto) 0.1 (0.0-1.5) % Neut # (Auto) 6.3 H (1.4-5.7) K/uL Lymph # (Auto) 1.5 (0.6-2.4) K/uL Cannon # (Auto) 0.6 (0.0-0.8) K/uL Eos # (Auto) 0.1 (0.0-0.7) K/uL Baso # (Auto) 0.0 (0.0-0.1) K/uL Nucleated RBC % 0.0 /100WBC Nucleated RBCs # 0 K/uL Sodium 134 L (136-145) mmol/L Potassium 3.9 (3.5-5.1) mmol/L Chloride 99 (98-107) mmol/L Carbon Dioxide 24.2 (21.0-32.0) mmol/L BUN 19 H (7.0-18.0) mg/dL Creatinine 0.8 (0.6-1.0) mg/dL Est Cr Clr Drug Dosing TNP Estimated GFR (MDRD) > 60.0 ml/min Glucose 60 L (74-106) mg/dL Calcium 8.7 (8.5-10.1) mg/dL Magnesium 1.4 L (1.8-2.4) mg/dL Total Bilirubin 0.7 (0.2-1.0) mg/dL AST 113 H (15-37) IU/L ALT 130 H (14-63) IU/L Alkaline Phosphatase 90 (46-116) U/L Total Protein 7.7 (6.4-8.2) g/dL Albumin 4.0 (3.4-5.0) g/dL Globulin 3.7 (2.6-4.0) g/dL Albumin/Globulin Ratio 1.1 (0.9-1.6) Free T4 0.80 (0.76-1.46) ng/dL Free T3 (2.18-3.98) pg/mL TSH, Ultra Sensitive 7.53 H (0.36-3.74) uIU/mL Urine Color Urine Appearance Urine pH (5.0-8.0) Ur Specific [place] (1.001-1.035) Urine Protein (NEGATIVE) mg/dL Urine Glucose (UA) (NEGATIVE) mg/dL Urine Ketones (NEGATIVE) mg/dL Urine Occult Blood (NEGATIVE) Urine Nitrite (NEGATIVE) Urine Bilirubin (NEGATIVE) Urine Urobilinogen (<2.0) EU/dL Ur Leukocyte Esterase (NEGATIVE) Urine HCG, Qual (NEGATIVE) Urine Opiates Screen NEGATIVE (NEGATIVE) Ur Oxycodone Screen NEGATIVE (NEGATIVE) Urine Methadone Screen NEGATIVE (NEGATIVE) Ur Barbiturates Screen NEGATIVE (NEGATIVE) Ur Phencyclidine Scrn NEGATIVE (NEGATIVE) Ur Amphetamine Screen NEGATIVE (NEGATIVE) U Methamphetamines Scrn NEGATIVE (NEGATIVE) U Benzodiazepines Scrn NEGATIVE (NEGATIVE) U Cocaine Metab Screen NEGATIVE (NEGATIVE) U Marijuana (THC) Screen POSITIVE (NEGATIVE) Ethyl Alcohol < 3.0 mg/dL Influenza Type A RNA (NEGATIVE) Influenza Type B RNA (NEGATIVE) SARS-CoV-2 RNA (BECKY) (NEGATIVE) 07/03/21 Range/Units 20:19 WBC (4.0-11.0) K/uL RBC (4.30-5.90) M/uL Hgb (12.0-16.0) g/dL Hct (36.0-46.0) % MCV (80.0-98.0) fL MCH (27.0-32.0) pg MCHC (31.0-37.0) g/dL RDW Std Deviation (28.0-62.0) fl RDW Coeff of Ifeoma (11.0-15.0) % Plt Count (150-400) K/uL MPV (7.40-12.00) fL Neut % (Auto) (48.0-80.0) % Lymph % (Auto) (16.0-40.0) % Cannon % (Auto) (0.0-15.0) % Eos % (Auto) (0.0-7.0) % Baso % (Auto) (0.0-1.5) % Neut # (Auto) (1.4-5.7) K/uL Lymph # (Auto) (0.6-2.4) K/uL Cannon # (Auto) (0.0-0.8) K/uL Eos # (Auto) (0.0-0.7) K/uL Baso # (Auto) (0.0-0.1) K/uL Nucleated RBC % /100WBC Nucleated RBCs # K/uL Sodium (136-145) mmol/L Potassium (3.5-5.1) mmol/L Chloride (98-107) mmol/L Carbon Dioxide (21.0-32.0) mmol/L BUN (7.0-18.0) mg/dL Creatinine (0.6-1.0) mg/dL Est Cr Clr Drug Dosing Estimated GFR (MDRD) ml/min Glucose (74-106) mg/dL Calcium (8.5-10.1) mg/dL Magnesium (1.8-2.4) mg/dL Total Bilirubin (0.2-1.0) mg/dL AST (15-37) IU/L ALT (14-63) IU/L Alkaline Phosphatase (46-116) U/L Total Protein (6.4-8.2) g/dL Albumin (3.4-5.0) g/dL Globulin (2.6-4.0) g/dL Albumin/Globulin Ratio (0.9-1.6) Free T4 (0.76-1.46) ng/dL Free T3 3.02 (2.18-3.98) pg/mL TSH, Ultra Sensitive (0.36-3.74) uIU/mL Urine Color Urine Appearance Urine pH (5.0-8.0) Ur Specific [place] (1.001-1.035) Urine Protein (NEGATIVE) mg/dL Urine Glucose (UA) (NEGATIVE) mg/dL Urine Ketones (NEGATIVE) mg/dL Urine Occult Blood (NEGATIVE) Urine Nitrite (NEGATIVE) Urine Bilirubin (NEGATIVE) Urine Urobilinogen (<2.0) EU/dL Ur Leukocyte Esterase (NEGATIVE) Urine HCG, Qual (NEGATIVE) Urine Opiates Screen (NEGATIVE) Ur Oxycodone Screen (NEGATIVE) Urine Methadone Screen (NEGATIVE) Ur Barbiturates Screen (NEGATIVE) Ur Phencyclidine Scrn (NEGATIVE) Ur Amphetamine Screen (NEGATIVE) U Methamphetamines Scrn (NEGATIVE) U Benzodiazepines Scrn (NEGATIVE) U Cocaine Metab Screen (NEGATIVE) U Marijuana (THC) Screen (NEGATIVE) Ethyl Alcohol mg/dL Influenza Type A RNA (NEGATIVE) Influenza Type B RNA (NEGATIVE) SARS-CoV-2 RNA (BECKY) (NEGATIVE) Medications Discontinued Medications Generic Name Dose Route Start Last Admin Trade Name Paula PRN Reason Stop Dose Admin Sodium Chloride 1,000 mls @ 999 mls/hr 07/03/21 18:43 07/03/21 19:50 Normal Saline IV 07/03/21 19:43 999 mls/hr STAT ONE Administration Lorazepam 1 mg 07/03/21 18:44 07/03/21 19:50 Lorazepam 2 Mg/Ml Sdv IVPUSH 07/03/21 18:45 1 mg ONETIME ONE Administration Departure - Departure Time of Disposition: 21:25 Disposition: Home, Self-Care 01 Clinical Impression: Alcohol abuse, Hyperthyroidism - Discharge Information Instructions: Alcohol Use Disorder, Alcohol Abuse and Dependence Information, Adult Referrals: Charlee Calvo PA [Primary Care Provider] - Forms: ED Department Discharge Additional Instructions: The following information is given to patients seen in the emergency department who are being discharged to home. This information is to outline your options for follow-up care. We provide all patients seen in our emergency department with a follow-up referral. The need for follow-up, as well as the timing and circumstances, are variable depending upon the specifics of your emergency department visit. If you don't have a primary care physician on staff, we will provide you with a referral. We always advise you to contact your personal physician following an emergency department visit to inform them of the circumstance of the visit and for follow-up with them and/or the need for any referrals to a consulting specialist. The emergency department will also refer you to a specialist when appropriate. This referral assures that you have the opportunity for follow-up care with a specialist. All of these measure are taken in an effort to provide you with optimal care, which includes your follow-up. Under all circumstances we always encourage you to contact your private physician who remains a resource for coordinating your care. When calling for follow-up care, please make the office aware that this follow-up is from your recent emergency room visit. If for any reason you are refused follow-up, please contact the [facility] Emergency Department at and asked to speak to the emergency department charge nurse. [facility] Primary Care [address] [place] [address] [facility] [address] [place] [address] Thank you for choosing the [facility] emergency department in [place] for your medical needs today. It was a pleasure caring for you. Today you were seen in the emergency department for alcohol abuse 1. You were evaluated today on an emergent basis. Your thyroid lab value is elevated. We encourage you to follow up with your primary care provider for re- evaluation and further care/management of your thyroid. 2. You can alternate Tylenol and ibuprofen as needed for pain and fever managem ent. 3. Currently there is a bed shortage in [place]. I would encourage you to go to [facility] in the morning to talk about outpatient/inpatient services. They open their doors at 8am and take walk-ins. 4. If your symptoms should worsen, new symptoms develop or any of the signs and symptoms we discussed should arise please return to the emergency room or call 911 (if needed).
[2021-07-03 18:59] VITALS: BP 128/80; PULSE 73
[2021-07-03 19:59] LABS: CORONAVIRUS COVID-19 NAA NEGATIVE (NEGATIVE); INFLUENZA A NAA NEGATIVE (NEGATIVE); INFLUENZA B NAA NEGATIVE (NEGATIVE)
[2021-07-03 21:02] LABS: BLOOD UREA NITROGEN,BUN 19 mg/dL (7.0-18.0); CARBON DIOXIDE,CO2 24.2 mmol/L (21.0-32.0); CHLORIDE,CL 99 mmol/L (98-107); GLUCOSE RANDOM 60 mg/dL (74-106); POTASSIUM,K 3.9 mmol/L (3.5-5.1); SODIUM,NA 134 mmol/L (136-145)
== END 2021-07-03 21:43 | disposition home or self-care (01) ==
LOC: MW.ED 16:37
DX: F10.10 Alcohol abuse, uncomplicated (principal); E05.90 Thyrotoxicosis, unspecified without thyrotoxic crisis or storm; R56.9 Unspecified convulsions; Y90.8 Blood alcohol level of 240 mg/100 ml or more; Z79.899 Other long term (current) drug therapy; Z20.822 Contact with and (suspected) exposure to COVID-19
CPT/HCPCS: 0240U; 36415; 80053; 80305; 80307; 81003; 81025; 83735; 84439; 84443; 84481; 85025; 96374; 99284; J2060; J7030

== ENCOUNTER 2022-06-07 13:01 | Emergency (ER) | payer MEDICAID ==
[2022-06-07] MEDS ORDERED: Ondansetron 4 MG/2 ML SDV IVPUSH ONE (14:52)
[2022-06-07] MEDS ORDERED: Sodium Chloride 0.9% 1,000 ML IV SCH ×2 (15:00→17:15)
[2022-06-07 15:59] LABS: CARBON DIOXIDE,CO2 26.5 mmol/L (21.0-32.0); POTASSIUM,K 4.9 mmol/L (3.5-5.1)
[2022-06-07 17:29] LABS: CORONAVIRUS COVID-19 NAA POSITIVE (NEGATIVE); INFLUENZA A NAA NEGATIVE (NEGATIVE); INFLUENZA B NAA NEGATIVE (NEGATIVE)
[2022-06-07] MEDS ORDERED: Iopamidol 755 MG/ML 500 ML Multipack Bottle IVPUSH ONE (18:12)
[2022-06-07 20:12] VITALS: BP 108/77; PULSE 98
== END 2022-06-07 20:00 | disposition home or self-care (01) ==
LOC: MW.ED 13:01
DX: U07.1 COVID-19 (principal); N17.9 Acute kidney failure, unspecified; R74.8 Abnormal levels of other serum enzymes; E11.9 Type 2 diabetes mellitus without complications; I10 Essential (primary) hypertension; Z79.899 Other long term (current) drug therapy
CPT/HCPCS: 0240U; 36415; 74177; 80053; 82947; 83690; 83735; 85025; 87045; 87046; 87449; 87899; 96361; 96374; 99284; J2405; J7030; Q9967

== ENCOUNTER 2023-02-28 07:24 | Emergency (ER) | payer MEDICAID ==
[2023-02-28] MEDS ORDERED: Lactated Ringers 1,000 ML IV ONE (07:34)
[2023-02-28] MEDS ORDERED: LORazepam 2 MG/ML SDV IV ONE (07:34)
[2023-02-28] MEDS ORDERED: Sodium Chloride 0.9% 10 ML Syringe FLUSH PRN (07:34)
[2023-02-28] MEDS ORDERED: Sodium Chloride 0.9% 2.5 ML Syringe FLUSH PRN (07:34)
[2023-02-28] MEDS ORDERED: Ondansetron 4 MG/2 ML SDV IVPUSH ONE (07:34)
[2023-02-28] MEDS ORDERED: LORazepam 2 MG/ML SDV IVPUSH ONE (07:41)
[2023-02-28 07:54] LABS: BASOPHILS PERCENT AUTO 0.3 % (0.0-1.5); EOSINOPHILS ABSOLUTE AUTO 0.1 K/uL (0.0-0.7); EOSINOPHILS PERCENT AUTO 1.7 % (0.0-7.0); HEMATOCRIT 38.3 % (36.0-46.0); HEMOGLOBIN 12.8 g/dL (12.0-16.0); LYMPHOCYTES ABSOLUTE AUTO 1.6 K/uL (0.6-2.4); LYMPHOCYTES PERCENT AUTO 27.4 % (16.0-40.0); MEAN CORPUSCULAR HEMOGLOBIN 32.7 pg (27.0-32.0); MEAN CORPUSCULAR HGB CONC 33.4 g/dL (31.0-37.0); MONOCYTES ABSOLUTE AUTO 0.2 K/uL (0.0-0.8); MONOCYTES PERCENT AUTO 3.4 % (0.0-15.0); NEUTROPHILS ABSOLUTE AUTO 3.9 K/uL (1.4-5.7); NEUTROPHILS PERCENT AUTO 67.2 % (48.0-80.0); NRBC ABSOLUTE 0 K/uL; PLATELET COUNT,PLT 213 K/uL (150-400); RED BLOOD CELL COUNT 3.91 M/uL (4.30-5.90)
[2023-02-28 08:22] LABS: A/G RATIO 0.9 (0.9-1.6); ALANINE AMINOTRANSFERASE,ALT 32 IU/L (14-63); ALBUMIN 4.2 g/dL (3.4-5.0); ALKALINE PHOSPHATASE 135 U/L (46-116); ASPARTATE AMNIOTRANSFERASE,AST 83 IU/L (15-37); BILIRUBIN TOTAL 0.4 mg/dL (0.2-1.0); BLOOD UREA NITROGEN,BUN 16 mg/dL (7.0-18.0); CALCIUM 9.7 mg/dL (8.5-10.1); CARBON DIOXIDE,CO2 22.7 mmol/L (21.0-32.0); CHLORIDE,CL 101 mmol/L (98-107); CREATININE 1.3 mg/dL (0.6-1.0); EST CRCL DRUG DOSING (CG) 41.73 mL/min; GLUCOSE RANDOM 198 mg/dL (74-106); LIPASE 76 U/L (16-77); MAGNESIUM 1.2 mg/dL (1.8-2.4); POTASSIUM,K 4.3 mmol/L (3.5-5.1); PROTEIN TOTAL,TP 8.9 g/dL (6.4-8.2); SODIUM,NA 139 mmol/L (136-145); TSH ULTRASENSITIVE 9.72 uIU/mL (0.36-3.74)
[2023-02-28 08:24] LABS: ESTIMATED GFR 54 mL/min (>60); ETHANOL BLOOD MEDICAL < 3.0 mg/dL
[2023-02-28 10:18] VITALS: BP 136/64; PULSE 71
== END 2023-02-28 10:15 | disposition home or self-care (01) ==
LOC: MW.ED 07:24
DX: F41.0 Panic disorder [episodic paroxysmal anxiety] (principal); R00.2 Palpitations; F10.20 Alcohol dependence, uncomplicated; Y90.0 Blood alcohol level of less than 20 mg/100 ml
CPT/HCPCS: 36415; 80053; 80307; 83690; 83735; 83880; 84439; 84443; 84484; 85025; 85379; 93005; 96361; 96374; 96375; 99285; J2060; J2405; J3490; J7120; 93010; 99284

== ENCOUNTER 2023-05-21 11:58 | Inpatient (IN) | payer MEDICAID ==
[2023-05-21] MEDS ORDERED: Ondansetron 4 MG/2 ML SDV IVPUSH ONE (12:17)
[2023-05-21] MEDS ORDERED: Sodium Chloride 0.9% 1,000 ML IV ONE ×3 (12:17→17:20)
[2023-05-21] MEDS ORDERED: Ketorolac 30 MG/ML SDV IVPUSH ONE (12:17)
[2023-05-21 12:56] LABS: BASOPHILS ABSOLUTE AUTO 0.04 K/uL (0.00-0.20); BASOPHILS PERCENT AUTO 0.4 % (0.0-1.0); EOSINOPHILS ABSOLUTE AUTO 0.09 K/uL (0.00-0.45); EOSINOPHILS PERCENT AUTO 0.8 % (0.0-6.0); HEMATOCRIT 37.9 % (37.0-47.0); HEMOGLOBIN 13.3 g/dL (12.0-16.0); IMMATURE GRAN ABSOLUTE AUTO 0.02 K/uL (0.00-0.05); IMMATURE GRAN PERCENT AUTO 0.2 % (0.0-0.4); LYMPHOCYTES ABSOLUTE AUTO 1.95 K/uL (1.00-4.80); LYMPHOCYTES PERCENT AUTO 17.8 % (24.0-44.0); MEAN CORPUSCULAR HEMOGLOBIN 34.1 pg (28.0-32.0); MEAN CORPUSCULAR HGB CONC 35.1 g/dL (32.0-36.0); MEAN CORPUSCULAR VOLUME 97.2 fL (83.0-99.0); MEAN PLATELET VOLUME 9.6 fL (9.4-12.3); MONOCYTES ABSOLUTE AUTO 0.58 K/uL (0.00-0.80); MONOCYTES PERCENT AUTO 5.3 % (0.0-8.0); NEUTROPHILS ABSOLUTE AUTO 8.26 K/uL (1.80-7.70); NEUTROPHILS PERCENT AUTO 75.5 % (41.0-71.0); PLATELET COUNT,PLT 260 K/uL (150-400); WHITE BLOOD CELL COUNT,WBC 10.94 K/uL (3.9-11.3)
[2023-05-21 13:11] LABS: ALBUMIN 5.2 g/dL (3.4-5.0); BILIRUBIN TOTAL 0.8 mg/dL (0.2-1.0); CALCIUM 10.8 mg/dL (8.5-10.1); CARBON DIOXIDE,CO2 17.8 mmol/L (21.0-32.0); CREATININE 5.1 mg/dL (0.6-1.0); EST CRCL DRUG DOSING (CG) 10.64 mL/min; POTASSIUM,K 4.8 mmol/L (3.5-5.1); PROTEIN TOTAL,TP 10.3 g/dL (6.4-8.2)
[2023-05-21 13:28] LABS: CORONAVIRUS COVID-19 NAA POSITIVE (NEGATIVE); INFLUENZA A NAA NEGATIVE (NEGATIVE); INFLUENZA B NAA NEGATIVE (NEGATIVE); RESPIRATORY SYNCYTIAL VIR NAA NEGATIVE (NEGATIVE)
[2023-05-21] MEDS ORDERED: Morphine 4 MG/ML Syringe IVPUSH ONE ×2 (13:31→17:28)
[2023-05-21 14:32] LABS: COLOR,URINE YELLOW; GLUCOSE,URINE >=1000 mg/dL (NEGATIVE); KETONES,URINE TRACE mg/dL (NEGATIVE); LEUKOCYTE ESTERASE,URINE NEGATIVE (NEGATIVE); NITRITE,URINE NEGATIVE (NEGATIVE); OCCULT BLOOD,URINE SMALL (NEGATIVE); PH,URINE 5.5 (5.0-8.0); PROTEIN,URINE 30 mg/dL (NEGATIVE); UROBILINOGEN,URINE 0.2 EU/dL (<2.0)
[2023-05-21 14:55] LABS: APPEARANCE,URINE HAZY; BILIRUBIN,URINE SMALL (NEGATIVE)
[2023-05-21 15:00] LABS: AMORPHOUS SEDIMENT,URINE LIGHT (NEGATIVE); BACTERIA,URINE 1+ (NEGATIVE); EPITHELIAL CELLS,URINE FEW (NONE-FEW); FINE GRANULAR CASTS,URINE 0-1 (NEGATIVE); HYALINE CASTS,URINE 0-1 (0-2/LPF); MUCUS,URINE LIGHT (NONE-MOD); RBC,URINE 0-1 (0-2/HPF); WBC,URINE 0-2 (0-5/HPF)
[2023-05-21 18:32] LABS: A/G RATIO 0.9 (0.9-1.6); ALBUMIN 3.7 g/dL (3.4-5.0); BILIRUBIN TOTAL 0.5 mg/dL (0.2-1.0); CALCIUM 8.2 mg/dL (8.5-10.1); CREATININE 4.3 mg/dL (0.6-1.0); EST CRCL DRUG DOSING (CG) 12.62 mL/min; POTASSIUM,K 5.5 mmol/L (3.5-5.1); PROTEIN TOTAL,TP 7.7 g/dL (6.4-8.2)
[2023-05-21] MEDS ORDERED: Glucagon,Human Recombinant 1 MG Vial IM PRN (18:55)
[2023-05-21] MEDS ORDERED: LORazepam 2 MG/ML SDV IVPUSH PRN (18:55)
[2023-05-21] MEDS ORDERED: Acetaminophen 325 MG Tab PO PRN (18:55)
[2023-05-21] MEDS ORDERED: 50% Dextrose in Water 50 ML Syringe IVPUSH PRN (18:55)
[2023-05-21] MEDS ORDERED: Ondansetron 4 MG/2 ML SDV IVPUSH PRN (18:55)
[2023-05-21] MEDS ORDERED: chlordiazePOXIDE 10 MG Cap PO SCH (19:00)
[2023-05-21] MEDS: Pantoprazole 40 MG in Sodium Chloride 0.9% 10 ML IVPUSH SCH (20:42)
[2023-05-21 20:51] LABS: CALCIUM 7.9 mg/dL (8.5-10.1); CREATININE 3.9 mg/dL (0.6-1.0); EST CRCL DRUG DOSING (CG) 13.91 mL/min; POTASSIUM,K 4.8 mmol/L (3.5-5.1)
[2023-05-21] MEDS ORDERED: Dextrose 5%-0.9% NaCl 1,000 ML IV SCH (21:00)
[2023-05-21] MEDS ORDERED: Enoxaparin 30 MG/0.3 ML Syringe SUBCUT SCH (21:00)
[2023-05-21] MEDS: Thiamine 500 MG in Sodium Chloride 0.9% 250 ML IV SCH (21:07)
[2023-05-21] MEDS: Folic Acid 1 MG/0.2 ML UD Syringe IV SCH (21:26)
[2023-05-21] MEDS ORDERED: Magnesium Sulfate/Water 2 GM in Premix Bag 1 BAG IV ONE (21:57)
[2023-05-21] MEDS ORDERED: Sodium Chloride 0.9% 20 ML SDV IV PRN (22:15)
[2023-05-21] MEDS ORDERED: Nicotine 21 MG/24 Hr Patch TRDERM PRN (22:15)
[2023-05-21] MEDS ORDERED: Albuterol/Ipratropium 3.0-0.5 MG/3 ML Neb Soln NEB PRN (22:15)
[2023-05-21] MEDS ORDERED: Sodium Chloride 0.9% 2.5 ML Syringe FLUSH PRN (22:15)
[2023-05-21] MEDS ORDERED: Sodium Chloride 0.9% 10 ML Syringe FLUSH PRN (22:15)
[2023-05-21] MEDS ORDERED: Diazepam 2 MG Tab PO PRN (22:20)
[2023-05-22 00:40] LABS: CALCIUM 8.1 mg/dL (8.5-10.1); CREATININE 3.6 mg/dL (0.6-1.0); EST CRCL DRUG DOSING (CG) 15.07 mL/min; POTASSIUM,K 4.5 mmol/L (3.5-5.1)
[2023-05-22 00:43] LABS: INR 1.11 (0.86-1.11)
[2023-05-22] MEDS: Sodium Chloride 0.9% 1,000 ML IV SCH ×2 (00:44→07:25)
[2023-05-22] MEDS ORDERED: Sodium Chloride 0.9% 1,000 ML IV SCH (01:45)
[2023-05-22] MEDS ORDERED: Diazepam 2 MG Tab PO PRN (02:00)
[2023-05-22] MEDS ORDERED: Norepinephrine Bit/D5W Premix 250 ML IV SCH (04:15)
[2023-05-22] MEDS: Thiamine 500 MG in Sodium Chloride 0.9% 250 ML IV SCH ×4 (05:01→21:06)
[2023-05-22 05:09] LABS: BASOPHILS ABSOLUTE AUTO 0.03 K/uL (0.00-0.20); BASOPHILS PERCENT AUTO 0.4 % (0.0-1.0); EOSINOPHILS ABSOLUTE AUTO 0.13 K/uL (0.00-0.45); EOSINOPHILS PERCENT AUTO 1.6 % (0.0-6.0); HEMATOCRIT 29.4 % (37.0-47.0); HEMOGLOBIN 10.4 g/dL (12.0-16.0); IMMATURE GRAN ABSOLUTE AUTO 0.02 K/uL (0.00-0.05); IMMATURE GRAN PERCENT AUTO 0.3 % (0.0-0.4); LYMPHOCYTES PERCENT AUTO 28.9 % (24.0-44.0); MEAN CORPUSCULAR HEMOGLOBIN 34.8 pg (28.0-32.0); MEAN CORPUSCULAR HGB CONC 35.4 g/dL (32.0-36.0); MEAN CORPUSCULAR VOLUME 98.3 fL (83.0-99.0); MEAN PLATELET VOLUME 9.4 fL (9.4-12.3); MONOCYTES ABSOLUTE AUTO 0.44 K/uL (0.00-0.80); MONOCYTES PERCENT AUTO 5.5 % (0.0-8.0); NEUTROPHILS ABSOLUTE AUTO 5.05 K/uL (1.80-7.70); NEUTROPHILS PERCENT AUTO 63.3 % (41.0-71.0); PLATELET COUNT,PLT 198 K/uL (150-400); RED BLOOD CELL COUNT 2.99 M/uL (4.10-5.30); WHITE BLOOD CELL COUNT,WBC 7.97 K/uL (3.9-11.3)
[2023-05-22 05:32] LABS: MAGNESIUM 2.2 mg/dL (1.8-2.4); PHOSPHORUS 3.4 mg/dL (2.6-4.7)
[2023-05-22] MEDS: Insulin Aspart 100 Units/ML 3 ML Pen SUBCUT SCH ×3 (07:58→17:07)
[2023-05-22 08:56] LABS: CALCIUM 7.6 mg/dL (8.5-10.1); CARBON DIOXIDE,CO2 20.2 mmol/L (21.0-32.0); EST CRCL DRUG DOSING (CG) 18.08 mL/min; POTASSIUM,K 4.7 mmol/L (3.5-5.1)
[2023-05-22] MEDS: Heparin Sodium 5,000 Units/ML Vial SUBCUT SCH ×2 (09:02→20:59)
[2023-05-22] MEDS: Pantoprazole 40 MG in Sodium Chloride 0.9% 10 ML IVPUSH SCH ×2 (09:02→21:00)
[2023-05-22] MEDS: Escitalopram 10 MG Tab PO SCH (09:03)
[2023-05-22] MEDS: Folic Acid 1 MG/0.2 ML UD Syringe IV SCH (09:03)
[2023-05-22] MEDS: levETIRAcetam 500 MG Tab PO SCH ×2 (09:03→21:00)
[2023-05-22 09:27] LABS: CALCIUM 7.7 mg/dL (8.5-10.1); CARBON DIOXIDE,CO2 18.3 mmol/L (21.0-32.0); CREATININE 3.2 mg/dL (0.6-1.0); EST CRCL DRUG DOSING (CG) 16.95 mL/min
[2023-05-22] MEDS: Lactated Ringers 1,000 ML IV SCH ×2 (10:09→18:17)
[2023-05-22 13:44] LABS: CALCIUM 7.8 mg/dL (8.5-10.1); CARBON DIOXIDE,CO2 19.3 mmol/L (21.0-32.0); CREATININE 2.7 mg/dL (0.6-1.0); EST CRCL DRUG DOSING (CG) 20.09 mL/min; POTASSIUM,K 4.7 mmol/L (3.5-5.1)
[2023-05-22 17:31] LABS: CALCIUM 7.9 mg/dL (8.5-10.1); CARBON DIOXIDE,CO2 18.7 mmol/L (21.0-32.0); CREATININE 2.6 mg/dL (0.6-1.0); EST CRCL DRUG DOSING (CG) 20.87 mL/min; POTASSIUM,K 5.3 mmol/L (3.5-5.1)
[2023-05-23] MEDS: Lactated Ringers 1,000 ML IV SCH ×2 (01:36→18:48)
[2023-05-23] MEDS: Thiamine 500 MG in Sodium Chloride 0.9% 250 ML IV SCH (05:10)
[2023-05-23 06:38] LABS: BASOPHILS ABSOLUTE AUTO 0.01 K/uL (0.00-0.20); BASOPHILS PERCENT AUTO 0.3 % (0.0-1.0); EOSINOPHILS ABSOLUTE AUTO 0.05 K/uL (0.00-0.45); EOSINOPHILS PERCENT AUTO 1.3 % (0.0-6.0); HEMATOCRIT 26.9 % (37.0-47.0); HEMOGLOBIN 9.3 g/dL (12.0-16.0); IMMATURE GRAN ABSOLUTE AUTO 0.01 K/uL (0.00-0.05); IMMATURE GRAN PERCENT AUTO 0.3 % (0.0-0.4); LYMPHOCYTES ABSOLUTE AUTO 1.29 K/uL (1.00-4.80); LYMPHOCYTES PERCENT AUTO 33.6 % (24.0-44.0); MEAN CORPUSCULAR HEMOGLOBIN 34.3 pg (28.0-32.0); MEAN CORPUSCULAR HGB CONC 34.6 g/dL (32.0-36.0); MEAN CORPUSCULAR VOLUME 99.3 fL (83.0-99.0); MEAN PLATELET VOLUME 9.7 fL (9.4-12.3); MONOCYTES ABSOLUTE AUTO 0.26 K/uL (0.00-0.80); MONOCYTES PERCENT AUTO 6.8 % (0.0-8.0); NEUTROPHILS ABSOLUTE AUTO 2.22 K/uL (1.80-7.70); NEUTROPHILS PERCENT AUTO 57.7 % (41.0-71.0); PLATELET COUNT,PLT 133 K/uL (150-400); RED BLOOD CELL COUNT 2.71 M/uL (4.10-5.30); WHITE BLOOD CELL COUNT,WBC 3.84 K/uL (3.9-11.3)
[2023-05-23 07:01] LABS: CALCIUM 7.9 mg/dL (8.5-10.1); CARBON DIOXIDE,CO2 18.8 mmol/L (21.0-32.0); EST CRCL DRUG DOSING (CG) 27.13 mL/min; MAGNESIUM 1.2 mg/dL (1.8-2.4); PHOSPHORUS 2.2 mg/dL (2.6-4.7); POTASSIUM,K 4.6 mmol/L (3.5-5.1)
[2023-05-23] MEDS ORDERED: Magnesium Sulfate/Water 4 GM in Premix Bag 1 BAG IV ONE (07:24)
[2023-05-23] MEDS: Insulin Aspart 100 Units/ML 3 ML Pen SUBCUT SCH ×3 (07:59→17:30)
[2023-05-23] MEDS: Phosphorus #1 250 MG Tab PO SCH ×3 (08:00→18:47)
[2023-05-23] MEDS: levETIRAcetam 500 MG Tab PO SCH ×2 (08:38→20:50)
[2023-05-23] MEDS: Heparin Sodium 5,000 Units/ML Vial SUBCUT SCH ×2 (08:38→20:50)
[2023-05-23] MEDS: Pantoprazole 40 MG in Sodium Chloride 0.9% 10 ML IVPUSH SCH ×2 (08:38→20:50)
[2023-05-23] MEDS: Folic Acid 1 MG/0.2 ML UD Syringe IV SCH (08:38)
[2023-05-23] MEDS: Escitalopram 10 MG Tab PO SCH (08:38)
[2023-05-23 10:04] LABS: HEMOGLOBIN A1C 5.9 %
[2023-05-24] MEDS: Phosphorus #1 250 MG Tab PO SCH (00:55)
[2023-05-24] MEDS: Lactated Ringers 1,000 ML IV SCH (03:51)
[2023-05-24 06:39] LABS: BASOPHILS ABSOLUTE AUTO 0.01 K/uL (0.00-0.20); BASOPHILS PERCENT AUTO 0.2 % (0.0-1.0); EOSINOPHILS ABSOLUTE AUTO 0.05 K/uL (0.00-0.45); EOSINOPHILS PERCENT AUTO 1.2 % (0.0-6.0); HEMATOCRIT 26.4 % (37.0-47.0); HEMOGLOBIN 9.3 g/dL (12.0-16.0); IMMATURE GRAN ABSOLUTE AUTO 0.01 K/uL (0.00-0.05); IMMATURE GRAN PERCENT AUTO 0.2 % (0.0-0.4); LYMPHOCYTES ABSOLUTE AUTO 1.26 K/uL (1.00-4.80); LYMPHOCYTES PERCENT AUTO 29.2 % (24.0-44.0); MEAN CORPUSCULAR HEMOGLOBIN 34.7 pg (28.0-32.0); MEAN CORPUSCULAR HGB CONC 35.2 g/dL (32.0-36.0); MEAN CORPUSCULAR VOLUME 98.5 fL (83.0-99.0); MEAN PLATELET VOLUME 9.4 fL (9.4-12.3); MONOCYTES ABSOLUTE AUTO 0.31 K/uL (0.00-0.80); MONOCYTES PERCENT AUTO 7.2 % (0.0-8.0); NEUTROPHILS ABSOLUTE AUTO 2.68 K/uL (1.80-7.70); PLATELET COUNT,PLT 138 K/uL (150-400); RED BLOOD CELL COUNT 2.68 M/uL (4.10-5.30); WHITE BLOOD CELL COUNT,WBC 4.32 K/uL (3.9-11.3)
[2023-05-24 06:58] LABS: CALCIUM 8.3 mg/dL (8.5-10.1); CARBON DIOXIDE,CO2 21.2 mmol/L (21.0-32.0); CREATININE 1.6 mg/dL (0.6-1.0); EST CRCL DRUG DOSING (CG) 33.91 mL/min; MAGNESIUM 1.5 mg/dL (1.8-2.4); PHOSPHORUS 3.4 mg/dL (2.6-4.7); POTASSIUM,K 5.1 mmol/L (3.5-5.1)
[2023-05-24] MEDS ORDERED: Thiamine 200 MG/2 ML MDV ONE (07:33)
[2023-05-24] MEDS: Insulin Aspart 100 Units/ML 3 ML Pen SUBCUT SCH ×2 (07:54→13:04)
[2023-05-24] MEDS: Escitalopram 10 MG Tab PO SCH (08:00)
[2023-05-24] MEDS: Pantoprazole 40 MG in Sodium Chloride 0.9% 10 ML IVPUSH SCH (08:00)
[2023-05-24] MEDS: Folic Acid 1 MG/0.2 ML UD Syringe IV SCH (08:00)
[2023-05-24] MEDS: levETIRAcetam 500 MG Tab PO SCH (08:00)
[2023-05-24] MEDS ORDERED: Thiamine 200 MG in Sodium Chloride 0.9% 100 ML IV SCH (09:00)
[2023-05-24] MEDS ORDERED: Thiamine 100 MG in Sodium Chloride 0.9% 100 ML IV SCH (09:00)
[2023-05-24] MEDS: Heparin Sodium 5,000 Units/ML Vial SUBCUT SCH (10:35)
[2023-05-24 14:14] VITALS: BP 124/84; PULSE 60
== END 2023-05-24 14:00 | disposition home or self-care (01) | DRG 896 ==
LOC: MW.ED 11:58 → MW.ICU 18:48 → MW.MS 05-23 11:36
PROVIDERS: ADMIT Family Medicine; ATTEND Family Medicine
PROC: 3E033XZ Introduction of Vasopressor into Peripheral Vein, Percutaneous Approach (ICD-10-PCS; principal; 2023-05-22)
DX: F10.239 Alcohol dependence with withdrawal, unspecified (principal); U07.1 COVID-19; N17.9 Acute kidney failure, unspecified; G40.909 Epilepsy, unspecified, not intractable, without status epilepticus; I10 Essential (primary) hypertension; F29 Unspecified psychosis not due to a substance or known physiological condition; E78.5 Hyperlipidemia, unspecified; E11.9 Type 2 diabetes mellitus without complications; E86.0 Dehydration; K52.9 Noninfective gastroenteritis and colitis, unspecified; Z79.4 Long term (current) use of insulin; Z79.899 Other long term (current) drug therapy; Z98.890 Other specified postprocedural states
CPT/HCPCS: 0241U; 36415; 74176; 74176-26; 80048; 80053; 81001; 82947; 83036; 83605; 83690; 83735; 84100; 84703; 85025; 85610; 87045; 87046; 87324; 87449; 87899; 99223; 99231; 99232; 99238; A9270-GY; C9113; J1644; J1885; J2270; J2405; J3411; J3475; J3490; J7030; J7050; J7120

== ENCOUNTER 2023-06-15 05:14 | Emergency (ER) | payer MEDICAID ==
[2023-06-15] MEDS ORDERED: Sodium Chloride 0.9% 10 ML Syringe FLUSH PRN (05:16)
[2023-06-15] MEDS ORDERED: Sodium Chloride 0.9% 2.5 ML Syringe FLUSH PRN (05:16)
[2023-06-15] MEDS ORDERED: Sodium Chloride 0.9% 1,000 ML IV ONE (05:17)
[2023-06-15] MEDS ORDERED: Haloperidol Lactate 5 MG/ML SDV IM ONE (05:22)
[2023-06-15 05:33] LABS: BASOPHILS ABSOLUTE AUTO 0.05 K/uL (0.00-0.20); BASOPHILS PERCENT AUTO 0.3 % (0.0-1.0); EOSINOPHILS PERCENT AUTO 0.7 % (0.0-6.0); HEMATOCRIT 37.1 % (37.0-47.0); IMMATURE GRAN ABSOLUTE AUTO 0.05 K/uL (0.00-0.05); IMMATURE GRAN PERCENT AUTO 0.3 % (0.0-0.4); LYMPHOCYTES ABSOLUTE AUTO 2.22 K/uL (1.00-4.80); LYMPHOCYTES PERCENT AUTO 14.6 % (24.0-44.0); MEAN CORPUSCULAR HEMOGLOBIN 33.2 pg (28.0-32.0); MEAN CORPUSCULAR VOLUME 94.6 fL (83.0-99.0); MEAN PLATELET VOLUME 10.6 fL (9.4-12.3); MONOCYTES PERCENT AUTO 3.9 % (0.0-8.0); NEUTROPHILS ABSOLUTE AUTO 12.18 K/uL (1.80-7.70); NEUTROPHILS PERCENT AUTO 80.2 % (41.0-71.0); PLATELET COUNT,PLT 310 K/uL (150-400); RED BLOOD CELL COUNT 3.92 M/uL (4.10-5.30)
[2023-06-15 05:41] LABS: BICARBONATE,VENOUS 16 mEq/L (23-28); PCO2 VENOUS 28 mmHG (41-51); PH,VENOUS 7.37 (7.31-7.41)
[2023-06-15 05:42] LABS: PO2 VENOUS < 30 mmHG
[2023-06-15 05:58] LABS: ALBUMIN 4.5 g/dL (3.4-5.0); BILIRUBIN TOTAL 0.3 mg/dL (0.2-1.0); CALCIUM 9.9 mg/dL (8.5-10.1); CARBON DIOXIDE,CO2 17.2 mmol/L (21.0-32.0); CREATININE 2.1 mg/dL (0.6-1.0); EST CRCL DRUG DOSING (CG) 25.83 mL/min; POTASSIUM,K 4.9 mmol/L (3.5-5.1); PROTEIN TOTAL,TP 8.8 g/dL (6.4-8.2)
[2023-06-15 05:59] LABS: A/G RATIO 1.1 (0.9-1.6)
[2023-06-15] MEDS ORDERED: Morphine 2 MG/ML SYRINGE IVPUSH ONE (06:01)
[2023-06-15 06:03] LABS: LACTIC ACID 3.7 mmol/L (0.4-2.0)
[2023-06-15 06:12] LABS: BILIRUBIN,URINE NEGATIVE (NEGATIVE); COLOR,URINE YELLOW; GLUCOSE,URINE >=1000 mg/dL (NEGATIVE); KETONES,URINE NEGATIVE (NEGATIVE); LEUKOCYTE ESTERASE,URINE NEGATIVE (NEGATIVE); NITRITE,URINE NEGATIVE (NEGATIVE); OCCULT BLOOD,URINE MODERATE (NEGATIVE); PH,URINE 5.5 (5.0-8.0); PROTEIN,URINE NEGATIVE (NEGATIVE); UROBILINOGEN,URINE 0.2 EU/dL (<2.0)
[2023-06-15] MEDS ORDERED: Iopamidol 755 MG/ML 500 ML Multipack Bottle IVPUSH ONE (06:18)
[2023-06-15 06:20] LABS: APPEARANCE,URINE HAZY
[2023-06-15 06:21] LABS: BACTERIA,URINE RARE (NEGATIVE); EPITHELIAL CELLS,URINE FEW (NONE-FEW); WBC,URINE 0-1 (0-5/HPF)
[2023-06-15] MEDS ORDERED: Dextrose 5%-0.9% NaCl 1,000 ML IV SCH (06:45)
[2023-06-15 09:27] LABS: CALCIUM 8.9 mg/dL (8.5-10.1); CARBON DIOXIDE,CO2 19.5 mmol/L (21.0-32.0); EST CRCL DRUG DOSING (CG) 27.13 mL/min
[2023-06-15 09:28] LABS: POTASSIUM,K 6.3 mmol/L (3.5-5.1)
[2023-06-15] MEDS ORDERED: Morphine 4 MG/ML Syringe IVPUSH ONE (09:33)
[2023-06-15 11:04] VITALS: BP 117/63; PULSE 82
== END 2023-06-15 11:03 | disposition home or self-care (01) ==
LOC: MW.ED 05:14
DX: N13.2 Hydronephrosis with renal and ureteral calculous obstruction (principal); Z79.4 Long term (current) use of insulin
CPT/HCPCS: 36415; 74177; 80048; 80053; 81001; 81025; 82803; 83605; 83690; 84703; 85025; 96361; 96372; 96374; 96376; 99284; J1630; J2270; J3490; J7030; J7042; Q9967

== ENCOUNTER 2023-10-24 18:28 | Emergency (ER) | payer MEDICAID ==
[2023-10-24 18:37] VITALS: BP 116/76; PULSE 73
== END 2023-10-24 18:50 | disposition home or self-care (01) ==
LOC: MW.ED 18:28
DX: Z76.0 Encounter for issue of repeat prescription (principal); I10 Essential (primary) hypertension; E11.9 Type 2 diabetes mellitus without complications; Z79.4 Long term (current) use of insulin; Z79.899 Other long term (current) drug therapy
CPT/HCPCS: 99281; 99283

== ENCOUNTER 2023-11-04 12:22 | Emergency (ER) | payer MEDICAID ==
[2023-11-04 13:52] LABS: BASOPHILS ABSOLUTE AUTO 0.02 K/uL (0.00-0.20); BASOPHILS PERCENT AUTO 0.2 % (0.0-1.0); EOSINOPHILS ABSOLUTE AUTO 0.13 K/uL (0.00-0.45); EOSINOPHILS PERCENT AUTO 1.2 % (0.0-6.0); HEMATOCRIT 39.8 % (37.0-47.0); HEMOGLOBIN 13.3 g/dL (12.0-16.0); IMMATURE GRAN ABSOLUTE AUTO 0.02 K/uL (0.00-0.05); IMMATURE GRAN PERCENT AUTO 0.2 % (0.0-0.4); LYMPHOCYTES ABSOLUTE AUTO 0.72 K/uL (1.00-4.80); LYMPHOCYTES PERCENT AUTO 6.9 % (24.0-44.0); MEAN CORPUSCULAR HEMOGLOBIN 31.7 pg (28.0-32.0); MEAN CORPUSCULAR HGB CONC 33.4 g/dL (32.0-36.0); MEAN CORPUSCULAR VOLUME 94.8 fL (83.0-99.0); MEAN PLATELET VOLUME 9.1 fL (9.4-12.3); MONOCYTES ABSOLUTE AUTO 0.35 K/uL (0.00-0.80); MONOCYTES PERCENT AUTO 3.3 % (0.0-8.0); NEUTROPHILS ABSOLUTE AUTO 9.27 K/uL (1.80-7.70); NEUTROPHILS PERCENT AUTO 88.2 % (41.0-71.0); PLATELET COUNT,PLT 230 K/uL (150-400); WHITE BLOOD CELL COUNT,WBC 10.51 K/uL (3.9-11.3)
[2023-11-04 14:22] LABS: CORONAVIRUS COVID-19 NAA NEGATIVE (NEGATIVE); INFLUENZA A NAA NEGATIVE (NEGATIVE); INFLUENZA B NAA NEGATIVE (NEGATIVE); RESPIRATORY SYNCYTIAL VIR NAA NEGATIVE (NEGATIVE)
[2023-11-04 14:33] LABS: A/G RATIO 0.9 (0.9-1.6); ALBUMIN 4.2 g/dL (3.4-5.0); BILIRUBIN TOTAL 0.5 mg/dL (0.2-1.0); CALCIUM 9.8 mg/dL (8.5-10.1); CARBON DIOXIDE,CO2 15.6 mmol/L (21.0-32.0); CREATININE 2.8 mg/dL (0.6-1.0); EST CRCL DRUG DOSING (CG) 19.18 mL/min; POTASSIUM,K 5.2 mmol/L (3.5-5.1); PROTEIN TOTAL,TP 9.1 g/dL (6.4-8.2); TSH ULTRASENSITIVE 3.32 uIU/mL (0.36-3.74)
[2023-11-04 15:45] LABS: APPEARANCE,URINE CLOUDY; BILIRUBIN,URINE NEGATIVE (NEGATIVE); COLOR,URINE YELLOW; GLUCOSE,URINE 500 mg/dL (NEGATIVE); KETONES,URINE TRACE mg/dL (NEGATIVE); LEUKOCYTE ESTERASE,URINE NEGATIVE (NEGATIVE); NITRITE,URINE NEGATIVE (NEGATIVE); OCCULT BLOOD,URINE LARGE (NEGATIVE); PROTEIN,URINE 100 mg/dL (NEGATIVE); UROBILINOGEN,URINE 0.2 EU/dL (<2.0)
[2023-11-04 16:08] LABS: BACTERIA,URINE FEW (NEGATIVE); EPITHELIAL CELLS,URINE FEW (NONE-FEW); RBC,URINE 40-50 (0-2/HPF); WBC,URINE 0-2 (0-5/HPF)
[2023-11-04] MEDS: Sodium Polystyrene Sulfonate 15 GM/60 ML Susp 60 ML Bot PO ONE (16:08)
[2023-11-04 19:03] VITALS: BP 105/78; PULSE 63
== END 2023-11-04 19:04 | disposition home or self-care (01) ==
LOC: MW.ED 12:22
DX: E87.5 Hyperkalemia (principal); I12.9 Hypertensive chronic kidney disease with stage 1 through stage 4 chronic kidney disease, or unspecified chronic kidney disease; N18.9 Chronic kidney disease, unspecified; N95.1 Menopausal and female climacteric states; E11.22 Type 2 diabetes mellitus with diabetic chronic kidney disease; Z75.8 Other problems related to medical facilities and other health care; Z79.4 Long term (current) use of insulin; Z79.899 Other long term (current) drug therapy
CPT/HCPCS: 0241U; 36415; 71045; 80053; 81001; 84443; 85025; 93005; 99284; A9270; 93010; 99283

== ENCOUNTER 2023-11-18 14:13 | Emergency (ER) | payer MEDICAID ==
[2023-11-18] MEDS: methylPREDNISolone Sodium Succinate 125 MG/2 ML SDV IVPUSH STA (14:23)
[2023-11-18] MEDS: diphenhydrAMINE 50 MG/ML SDV IVPUSH STA (14:23)
[2023-11-18] MEDS: Famotidine 20 MG/2 ML SDV IVPUSH STA (14:23)
[2023-11-18] MEDS: Sodium Chloride 0.9% 1,000 ML IV STA (14:23)
[2023-11-18 16:13] VITALS: BP 105/58; PULSE 90
== END 2023-11-18 16:12 | disposition home or self-care (01) ==
LOC: MW.ED 14:13
DX: T78.1XXA Other adverse food reactions, not elsewhere classified, initial encounter (principal); H66.91 Otitis media, unspecified, right ear; R22.0 Localized swelling, mass and lump, head; I10 Essential (primary) hypertension; E11.9 Type 2 diabetes mellitus without complications; Z79.899 Other long term (current) drug therapy; Z79.4 Long term (current) use of insulin; Z75.8 Other problems related to medical facilities and other health care
CPT/HCPCS: 96361; 96374; 96375; 99283; J1200; J2919; J3490; J7030; 99284; J2930

== ENCOUNTER 2023-12-19 19:45 | Emergency (ER) | payer BC, MEDICAID ==
[2023-12-19] MEDS: 50% Dextrose in Water 50 ML Syringe IVPUSH ONE (20:16)
[2023-12-19] MEDS: Sodium Chloride 0.9% 10 ML Syringe FLUSH PRN (20:22)
[2023-12-19] MEDS: Sodium Chloride 0.9% 2.5 ML Syringe FLUSH PRN (20:22)
[2023-12-19 20:40] LABS: BASOPHILS ABSOLUTE AUTO 0.02 K/uL (0.00-0.20); BASOPHILS PERCENT AUTO 0.2 % (0.0-1.0); EOSINOPHILS ABSOLUTE AUTO 0.07 K/uL (0.00-0.45); EOSINOPHILS PERCENT AUTO 0.8 % (0.0-6.0); HEMATOCRIT 34.3 % (37.0-47.0); HEMOGLOBIN 11.9 g/dL (12.0-16.0); IMMATURE GRAN ABSOLUTE AUTO 0.03 K/uL (0.00-0.05); IMMATURE GRAN PERCENT AUTO 0.3 % (0.0-0.4); LYMPHOCYTES ABSOLUTE AUTO 1.79 K/uL (1.00-4.80); LYMPHOCYTES PERCENT AUTO 19.8 % (24.0-44.0); MEAN CORPUSCULAR HEMOGLOBIN 31.6 pg (28.0-32.0); MEAN CORPUSCULAR HGB CONC 34.7 g/dL (32.0-36.0); MEAN PLATELET VOLUME 9.3 fL (9.4-12.3); MONOCYTES ABSOLUTE AUTO 0.67 K/uL (0.00-0.80); MONOCYTES PERCENT AUTO 7.4 % (0.0-8.0); NEUTROPHILS ABSOLUTE AUTO 6.46 K/uL (1.80-7.70); NEUTROPHILS PERCENT AUTO 71.5 % (41.0-71.0); PLATELET COUNT,PLT 254 K/uL (150-400); RED BLOOD CELL COUNT 3.77 M/uL (4.10-5.30); WHITE BLOOD CELL COUNT,WBC 9.04 K/uL (3.9-11.3)
[2023-12-19 21:12] LABS: A/G RATIO 1.1 (0.9-1.6); ALANINE AMINOTRANSFERASE,ALT 24 IU/L (14-63); ALBUMIN 4.4 g/dL (3.4-5.0); ALKALINE PHOSPHATASE 95 U/L (46-116); ASPARTATE AMNIOTRANSFERASE,AST 25 IU/L (15-37); BILIRUBIN TOTAL 0.4 mg/dL (0.2-1.0); BLOOD UREA NITROGEN,BUN 109 mg/dL (7.0-18.0); CALCIUM 9.6 mg/dL (8.5-10.1); CARBON DIOXIDE,CO2 16.7 mmol/L (21.0-32.0); CHLORIDE,CL 95 mmol/L (98-107); EST CRCL DRUG DOSING (CG) 4.48 mL/min; ESTIMATED GFR 4 mL/min (>60); GLUCOSE RANDOM 56 mg/dL (74-106); POTASSIUM,K 4.4 mmol/L (3.5-5.1); PROTEIN TOTAL,TP 8.4 g/dL (6.4-8.2); SODIUM,NA 135 mmol/L (136-145); TSH ULTRASENSITIVE 5.04 uIU/mL (0.36-3.74)
[2023-12-19 21:33] LABS: T4 FREE 0.85 ng/dL (0.76-1.46)
[2023-12-19] MEDS: Ondansetron 4 MG/2 ML SDV IVPUSH ONE (22:06)
[2023-12-19] MEDS: Sodium Chloride 0.9% 1,000 ML IV ONE (22:08)
[2023-12-19 22:19] LABS: APPEARANCE,URINE HAZY; BILIRUBIN,URINE NEGATIVE (NEGATIVE); COLOR,URINE YELLOW; GLUCOSE,URINE 500 mg/dL (NEGATIVE); KETONES,URINE NEGATIVE (NEGATIVE); LEUKOCYTE ESTERASE,URINE NEGATIVE (NEGATIVE); NITRITE,URINE NEGATIVE (NEGATIVE); OCCULT BLOOD,URINE SMALL (NEGATIVE); PH,URINE 5.5 (5.0-8.0); PROTEIN,URINE 30 mg/dL (NEGATIVE); UROBILINOGEN,URINE 0.2 EU/dL (<2.0)
[2023-12-19 22:24] LABS: AMORPHOUS SEDIMENT,URINE LIGHT (NEGATIVE); BACTERIA,URINE 1+ (NEGATIVE); CREATININE,URINE RAND 109.5 mg/dL; EPITHELIAL CELLS,URINE MODERATE (NONE-FEW); RBC,URINE 0-3 (0-2/HPF); WBC,URINE 0-2 (0-5/HPF)
[2023-12-19 23:00] LABS: AMPHETAMINES SCREEN, URINE NEGATIVE (CUTOFF=500); BARBITURATE SCREEN,URINE NEGATIVE (CUTOFF=200); BENZODIAZEPINES SCREEN,URINE NEGATIVE (CUTOFF=150); BUPRENORPHINE SCREEN,URINE NEGATIVE (CUTOFF=10); METHADONE SCREEN, URINE NEGATIVE (CUTOFF=200); METHAMPHETAMINES SCREEN, URINE NEGATIVE (CUTOFF=500); OXYCODONE SCREEN,URINE NEGATIVE (CUT0FF=100); PCP SCREEN,URINE NEGATIVE (CUTOFF=25); THC SCREEN,URINE 20 NG/ML NEGATIVE (CUTOFF=50)
[2023-12-20 00:49] VITALS: BP 101/50; PULSE 76
== END 2023-12-20 00:39 ==
LOC: MERGE 19:45 → MW.ED 19:45
DX: R53.1 Weakness (principal); E11.649 Type 2 diabetes mellitus with hypoglycemia without coma; N17.9 Acute kidney failure, unspecified; Z75.8 Other problems related to medical facilities and other health care
CPT/HCPCS: 36415; 71045; 80053; 80305; 81001; 82570; 84300; 84439; 84443; 84484; 85025; 93005; 96361; 96374; 96375; 99285; J2405; J3490; J7030

== ENCOUNTER 2024-05-27 21:29 | Emergency (ER) | payer MEDICAID ==
[2024-05-27 21:40] VITALS: BP 135/56; PULSE 105
[2024-05-27] MEDS: Ondansetron 4 MG/2 ML SDV IVPUSH ONE (22:29)
[2024-05-27] MEDS: Ketorolac 30 MG/ML SDV IVPUSH ONE (22:29)
[2024-05-27 22:45] LABS: A/G RATIO 1.2 (0.9-1.6); ALANINE AMINOTRANSFERASE,ALT 25 IU/L (14-63); ALBUMIN 4.3 g/dL (3.4-5.0); ALKALINE PHOSPHATASE 89 U/L (46-116); ASPARTATE AMNIOTRANSFERASE,AST 35 IU/L (15-37); BILIRUBIN TOTAL 0.6 mg/dL (0.2-1.0); BLOOD UREA NITROGEN,BUN 14 mg/dL (7.0-18.0); CALCIUM 9.5 mg/dL (8.5-10.1); CARBON DIOXIDE,CO2 23.1 mmol/L (21.0-32.0); CHLORIDE,CL 102 mmol/L (98-107); CREATININE 1.3 mg/dL (0.6-1.0); ESTIMATED GFR 53 mL/min (>60); GLUCOSE RANDOM 153 mg/dL (74-106); LIPASE 100 U/L (16-77); POTASSIUM,K 3.6 mmol/L (3.5-5.1); PROTEIN TOTAL,TP 7.9 g/dL (6.4-8.2); SODIUM,NA 138 mmol/L (136-145)
[2024-05-27 23:05] LABS: BASOPHILS ABSOLUTE AUTO 0.02 K/uL (0.00-0.20); BASOPHILS PERCENT AUTO 0.2 % (0.0-1.0); EOSINOPHILS ABSOLUTE AUTO 0.13 K/uL (0.00-0.45); EOSINOPHILS PERCENT AUTO 1.3 % (0.0-6.0); HEMATOCRIT 33.5 % (37.0-47.0); HEMOGLOBIN 11.3 g/dL (12.0-16.0); IMMATURE GRAN ABSOLUTE AUTO 0.03 K/uL (0.00-0.05); IMMATURE GRAN PERCENT AUTO 0.3 % (0.0-0.4); LYMPHOCYTES ABSOLUTE AUTO 2.86 K/uL (1.00-4.80); MEAN CORPUSCULAR HEMOGLOBIN 28.2 pg (28.0-32.0); MEAN CORPUSCULAR HGB CONC 33.7 g/dL (32.0-36.0); MEAN CORPUSCULAR VOLUME 83.5 fL (83.0-99.0); MONOCYTES ABSOLUTE AUTO 0.57 K/uL (0.00-0.80); MONOCYTES PERCENT AUTO 5.6 % (0.0-8.0); NEUTROPHILS ABSOLUTE AUTO 6.62 K/uL (1.80-7.70); NEUTROPHILS PERCENT AUTO 64.6 % (41.0-71.0); PLATELET COUNT,PLT 211 K/uL (150-400); RED BLOOD CELL COUNT 4.01 M/uL (4.10-5.30); WHITE BLOOD CELL COUNT,WBC 10.23 K/uL (3.9-11.3)
[2024-05-28] MEDS: Morphine 4 MG/ML Syringe IVPUSH ONE (01:27)
== END 2024-05-28 01:00 | disposition left against medical advice (07) ==
LOC: MW.ED 21:29
DX: N23 Unspecified renal colic (principal); I10 Essential (primary) hypertension; E11.9 Type 2 diabetes mellitus without complications; Z79.4 Long term (current) use of insulin; Z79.899 Other long term (current) drug therapy
CPT/HCPCS: 36415; 74176; 80053; 83690; 85025; 96374; 96375; 99284; J1885; J2405; 99283